=== PATIENT | female | born 1945 | race Caucasian/White ===

== ENCOUNTER 2017-12-11 06:56 | Day surgery (SDC) | payer MEDICARE ==
[~2017-12-11 06:56] MED LIST: Lactated Ringers 1,000 ML IV SCH
[2017-12-11] MEDS ORDERED: Propofol 200 MG/20 ML SDV ONE (08:21)
[2017-12-11] MEDS ORDERED: Midazolam 1 MG/ML 2 ML SDV ONE (08:21)
[2017-12-11] MEDS ORDERED: fentaNYL 100 MCG/2 ML SDV ONE (08:21)
[2017-12-11] MEDS ORDERED: Succinylcholine 200 MG/10 ML MDV ONE (08:22)
[2017-12-11] MEDS: Bupivacaine 0.5% 30 ML SDV ONE (08:44)
[2017-12-11] MEDS ORDERED: ceFAZolin 1 GM Vial ONE (08:54)
--- NOTE | 2017-12-11 14:41 | OR ---
PREOPERATIVE DIAGNOSIS: Right neck lymphadenopathy suspicious for a B-cell lymphoma. POSTOPERATIVE DIAGNOSIS: Right neck lymphadenopathy suspicious for a B-cell lymphoma. PROCEDURE PERFORMED: Right neck lymph node excision. INDICATION: The patient is a 72-year-old female with history of a right neck lymphadenopathy, who presents for excision at this time. PROCEDURE IN DETAIL: Procedure was done in the operating room. General anesthetic was administered. The right neck was prepped and draped in sterile manner. A #15 blade was used to make a transverse incision 2 cm below the mandible. Cautery was used to go through subcutaneous tissue down to the platysma, medially below the platysma the hard mass was located, it was carefully dissected free from the surrounding tissue and from the jugular vein with cautery and sent to pathology. The incision was closed in layers with 3-0 Vicryl interrupted suture and 4-0 Vicryl running subcuticular suture and Dermabond. The patient was brought to PACU postoperatively and will be sent to home later today. BKD: 12/11/2017 09:56:16 MODL: 12/11/2017 14:28:53 /[id number]
== END 2017-12-11 11:09 | disposition home or self-care (01) ==
LOC: VM.SDS 06:56
PROVIDERS: ATTEND Surgery
DX: C82.01 Follicular lymphoma grade I, lymph nodes of head, face, and neck (principal); E11.9 Type 2 diabetes mellitus without complications; I10 Essential (primary) hypertension; E78.5 Hyperlipidemia, unspecified; E66.01 Morbid (severe) obesity due to excess calories; Z79.82 Long term (current) use of aspirin; Z79.899 Other long term (current) drug therapy; Z68.36 Body mass index [BMI] 36.0-36.9, adult; F17.210 Nicotine dependence, cigarettes, uncomplicated
CPT/HCPCS: 00300; J0330; J0690; J2250; J2704; J3010; J7120

== ENCOUNTER 2018-03-06 12:58 | Emergency (ER) | payer MEDICARE, MEDICAID ==
[2018-03-06] MEDS ORDERED: Sodium Chloride 0.9% 1,000 ML IV ONE (13:11)
[2018-03-06] MEDS ORDERED: Ondansetron 4 MG/2 ML SDV IVPUSH ONE (13:11)
[2018-03-06] MEDS ORDERED: Sodium Chloride 0.9% 10 ML Syringe FLUSH PRN (13:11)
[2018-03-06 13:51] LABS: CHLORIDE,CL 107 mmol/L (98-107); SODIUM,NA 143 mmol/L (136-145)
--- NOTE | 2018-03-07 20:52 | EDM.PDOC ---
ED HPI GENERAL MEDICAL PROBLEM - General Chief Complaint: General Stated Complaint: DIZZY,NUMB LIPS,SICK TO STOMACH Time Seen by Provider: 03/06/18 13:09 Source of Information: Reports: Patient History Limitations: Reports: No Limitations - History of Present Illness INITIAL COMMENTS - FREE TEXT/NARRATIVE: Pt. presents to er with acute onset of vertigo. She is currently undergoing chemotherapy (oral) for lymphoma. Pt. states that the onset of the vertigo was very rapid. Denies any headache, extremity or speech issues. She denies any fever or chills. She states that she cant open her eyes or she becomes nauseated. Onset Date: 03/06/18 Location: Reports: Generalized - Related Data Allergies Allergy/AdvReac Type Severity Reaction Status Date / Time No Known Allergies Allergy Verified 03/06/18 14:29 Home Meds: Home Meds Aspirin 325 mg PO BEDTIME 12/06/17 [History] Calcium Carbonate/Vitamin D3 [Calcium 600 + Vit D 400 Softgl] 1 tab PO BID 12/06 [History] Clopidogrel [Plavix] 75 mg PO BEDTIME 12/06/17 [History] Enalapril [Vasotec] 5 mg PO DAILY 12/06/17 [History] Multivitamin with Minerals [Multivitamins with Minerals] 4 cap PO DAILY [History] Naproxen Sodium [Aleve] 220 mg PO DAILY PRN 12/06/17 [History] Simvastatin [Zocor] 40 mg PO BEDTIME 12/06/17 [History] Ruxolitinib Phosphate [Jakafi] 10 mg DAILY 03/06/18 [History] Past Medical History HEENT History: Reports: Macular Degeneration Cardiovascular History: Reports: High Cholesterol, Hypertension Respiratory History: Reports: None Gastrointestinal History: Reports: Other (See Below) Other Gastrointestinal History: + FIT Neurological History: Reports: CVA, Headaches, Chronic, Other (See Below) Other Neuro History: CVD Psychiatric History: Reports: None Endocrine/Metabolic History: Reports: Diabetes, Type II, Obesity/BMI 30+ Hematologic History: Reports: None Immunologic History: Reports: None Oncologic (Cancer) History: Reports: Lymphoma, Other (See Below) Other Oncologic History: 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 Dermatologic History: Reports: Other (See Below) Other Dermatologic History: right side neck mass - Past Surgical History Head Surgeries/Procedures: Reports: None HEENT Surgical History: Reports: Other (See Below) Other HEENT Surgeries/Procedures: INJECTIONS IN LEFT EYE Cardiovascular Surgical History: Reports: None Respiratory Surgical History: Reports: None Female Surgical History: Reports: Section Social & Family History - Tobacco Use Smoking Status *Q: Current Every Day Smoker Years of Tobacco use: 56 Packs/Tins Daily: 0.5 - Caffeine Use Caffeine Use: Reports: Coffee - Recreational Drug Use Recreational Drug Use: No ED ROS GENERAL - Review of Systems Review Of Systems: See Below Constitutional: Reports: No Symptoms HEENT: Reports: Vertigo Respiratory: Reports: No Symptoms Cardiovascular: Reports: No Symptoms Endocrine: Reports: No Symptoms GI/Abdominal: Reports: No Symptoms : Reports: No Symptoms Musculoskeletal: Reports: No Symptoms Skin: Reports: No Symptoms Neurological: Reports: No Symptoms Psychiatric: Reports: No Symptoms Hematologic/Lymphatic: Reports: No Symptoms Immunologic: Reports: No Symptoms ED EXAM, GENERAL - Physical Exam Exam: See Below Exam Limited By: No Limitations General Appearance: Alert, WD/WN, No Apparent Distress Eye Exam: Bilateral Eye: EOMI, Normal Fundi, Normal Inspection, PERRL Ears: Normal External Exam, Normal Canal, Hearing Grossly Normal, Normal TMs Ear Exam: Bilateral Ear: Auricle Normal, Canal Normal, TM normal Nose: Normal Inspection, Normal Mucosa, No Blood Throat/Mouth: Normal Inspection, Normal Lips, Normal Teeth, Normal Gums, Normal Oropharynx, Normal Voice, No Airway Compromise Head: Atraumatic, Normocephalic Neck: Normal Inspection, Supple, Non-Tender, Full Range of Motion Respiratory/Chest: No Respiratory Distress, Lungs Clear, Normal Breath Sounds, No Accessory Muscle Use, Chest Non-Tender Cardiovascular: Normal Peripheral Pulses, Regular Rate, Rhythm, No Edema, No Gallop, No JVD, No Murmur, No Rub Peripheral Pulses: 4+: Radial (L), Radial (R) GI/Abdominal: Normal Bowel Sounds, Soft, Non-Tender, No Organomegaly, No Distention, No Abnormal Bruit, No Mass (Female) Exam: Deferred Rectal (Female) Exam: Deferred Back Exam: Normal Inspection, Full Range of Motion, NT Extremities: Normal Inspection, Normal Range of Motion, Non-Tender, Normal Capillary Refill, No Pedal Edema Neurological: Alert, Oriented, CN II-XII Intact, Normal Cognition, Normal Gait, Normal Reflexes, No Motor/Sensory Deficits Psychiatric: Normal Affect, Normal Mood Skin Exam: Warm, Dry, Intact, Normal Color, No Rash Lymphatic: No Adenopathy (Mayi-Hallpike was positive) Course - Vital Signs Last Recorded V/S: Last Vital Signs Temp 36.6 C 03/06/18 13:05 Pulse 62 03/06/18 13:05 Resp 20 03/06/18 13:05 BP 156/57 H 03/06/18 13:05 Pulse Ox 96 03/06/18 13:05 - Orders/Labs/Meds Labs: Laboratory Tests 03/06/18 03/06/18 03/06/18 Range/Units 13:21 13:21 13:21 WBC 41.8 H* (4.0-10.0) x10^3/uL RBC 4.61 (4.00-5.50) x10^6/uL Hgb 13.3 (12.0-16.0) g/dL Hct 40.9 (33.0-47.0) % MCV 88.7 (78.0-93.0) fL MCH 28.9 (26.0-32.0) pg MCHC 32.5 (32.0-36.0) g/dL RDW (10.9-15.7) RDW Coeff of Audrey 19.0 H (10.0-15.0) % Plt Count 101 L (130-400) x10^3/uL Add Manual Diff Yes Neutrophils % (Manual) 41 L (50-80) % Band Neutrophils % 19 H (0-6) % Band Neuts % (Manual) % Lymphocytes % (Manual) 10 L (25-50) % Monocytes % (Manual) 6 (2-11) % Eosinophils % (Manual) 5 H (0-4) % Basophils % (Manual) 1 (0-1) % Metamyelocytes % 8 H (0) % Metamyelocytes % (Man) % Myelocytes % 10 H (0) % Myelocytes % (Man) % Blast Cells % (Manual) % Neutrophils # (Manual) (1.80-7.00) x10-3 ul Band Neutrophils # Man (0.00-0.70) x10-3 ul Lymphocytes # (Manual) (1.00-4.80) x10-3 ul Monocytes # (Manual) (0.00-0.80) x10-3 ul Eosinophils # (Manual) (0.00-0.45) x10-3 ul Basophils # (Manual) (0.00-0.20) x10-3 ul Nucleated RBCs/100 WBC % RBC/WBC/PLT Morphology Platelet Estimate Decreased L Giant Platelets Rare H Polychromasia 1+ slight H Anisocytosis 3+ marked H Spherocytes Rare Tear Drop Cells Rare Ovalocytes 2+ moderate H Smear Path Review Absolute Retic (0.0200-0.1000) Percent Retic (0.3-2.2) % PT 10.8 (9.6-11.4) SEC INR 1.0 L (2.0-3.5) Sodium 143 (136-145) mmol/L Potassium 3.9 (3.5-5.1) mmol/L Chloride 107 (98-107) mmol/L Carbon Dioxide 25 (21-32) mmol/L Anion Gap 14.9 (10-20) mmol/L BUN 18 (7-18) mg/dL Creatinine 0.8 (0.55-1.02) mg/dL Est Cr Clr Drug Dosing TNP Estimated GFR (MDRD) > 60 Glucose 118 H (74-106) mg/dL Serum Osmolality (275-295) mosm/kg Calcium 9.2 (8.5-10.1) mg/dL Corrected Calcium 9.36 (8.5-10.1) mg/dL Total Bilirubin 0.6 (0.2-1.0) mg/dL AST 31 (15-37) U/L ALT 25 (14-59) U/L Alkaline Phosphatase 95 (46-116) U/L Troponin I < 0.017 (<=0.056) ng/mL C-Reactive Protein 0.3 (<=0.9) mg/dL Total Protein 7.2 (6.4-8.2) g/dL Albumin 3.8 (3.4-5.0) g/dL Globulin 3.4 Albumin/Globulin Ratio 1.12 03/06/18 03/06/18 Range/Units 13:21 14:21 WBC 39.2 H* (4.0-10.0) x10^3/uL RBC 4.42 (4.00-5.50) x10^6/uL Hgb 12.4 (12.0-16.0) g/dL Hct 38.2 (33.0-47.0) % MCV 86 (78.0-93.0) fL MCH 28.1 (26.0-32.0) pg MCHC 32.5 (32.0-36.0) g/dL RDW 18.2 H (10.9-15.7) RDW Coeff of Audrey (10.0-15.0) % Plt Count 93 L (130-400) x10^3/uL Add Manual Diff Neutrophils % (Manual) 24 (50-80) % Band Neutrophils % (0-6) % Band Neuts % (Manual) 35 % Lymphocytes % (Manual) 6 (25-50) % Monocytes % (Manual) 2 (2-11) % Eosinophils % (Manual) 4 (0-4) % Basophils % (Manual) 6 (0-1) % Metamyelocytes % (0) % Metamyelocytes % (Man) 11.5 % Myelocytes % (0) % Myelocytes % (Man) 11.5 % Blast Cells % (Manual) 0.5 % Neutrophils # (Manual) 9.41 H (1.80-7.00) x10-3 ul Band Neutrophils # Man 13.72 H (0.00-0.70) x10-3 ul Lymphocytes # (Manual) 2.35 (1.00-4.80) x10-3 ul Monocytes # (Manual) 0.78 (0.00-0.80) x10-3 ul Eosinophils # (Manual) 1.57 H (0.00-0.45) x10-3 ul Basophils # (Manual) 2.35 H (0.00-0.20) x10-3 ul Nucleated RBCs/100 WBC 1.0 % RBC/WBC/PLT Morphology Abnormal Platelet Estimate Mod dec Giant Platelets Polychromasia 1+ Anisocytosis Spherocytes Tear Drop Cells 1+ Ovalocytes 2+ Smear Path Review Path rpt Absolute Retic 0.1886 H (0.0200-0.1000) Percent Retic 4.3 H (0.3-2.2) % PT (9.6-11.4) SEC INR (2.0-3.5) Sodium (136-145) mmol/L Potassium (3.5-5.1) mmol/L Chloride (98-107) mmol/L Carbon Dioxide (21-32) mmol/L Anion Gap (10-20) mmol/L BUN (7-18) mg/dL Creatinine (0.55-1.02) mg/dL Est Cr Clr Drug Dosing Estimated GFR (MDRD) Glucose (74-106) mg/dL Serum Osmolality 304 H (275-295) mosm/kg Calcium (8.5-10.1) mg/dL Corrected Calcium (8.5-10.1) mg/dL Total Bilirubin (0.2-1.0) mg/dL AST (15-37) U/L ALT (14-59) U/L Alkaline Phosphatase (46-116) U/L Troponin I (<=0.056) ng/mL C-Reactive Protein (<=0.9) mg/dL Total Protein (6.4-8.2) g/dL Albumin (3.4-5.0) g/dL Globulin Albumin/Globulin Ratio Meds: Medications Discontinued Medications Generic Name Dose Route Start Last Admin Trade Name Freq PRN Reason Stop Dose Admin Sodium Chloride 1,000 mls @ 1,000 mls/hr 03/06/18 13:11 03/06/18 13:37 Normal Saline IV 03/06/18 14:10 1,000 mls/hr .BOLUS ONE Administration Ondansetron HCl 4 mg 03/06/18 13:11 03/06/18 13:37 Zofran IVPUSH 03/06/18 13:12 4 mg ONETIME ONE Administration Sodium Chloride 10 ml 03/06/18 13:11 Saline Flush FLUSH ASDIRECTED PRN Keep Vein Open Departure - Departure Time of Disposition: 12:58 Disposition: Home, Self-Care 01 Condition: Good Clinical Impression: BPPV (benign paroxysmal positional vertigo) - Discharge Information Instructions: Labyrinthitis Referrals: Savana Nina, [Primary Care Provider] - Forms: ED Department Discharge Additional Instructions: Home to rest. Zofran 4mg every 8 hours for nausea If still experiencing vertigo, you can try either dimenhydrinate (dramamine) or meclizine. These are both over the counter. Contact physical therapy if you are still experiencing symptoms.
== END 2018-03-06 16:10 | disposition home or self-care (01) ==
LOC: VM.ED 12:58
DX: H81.10 Benign paroxysmal vertigo, unspecified ear (principal); C85.90 Non-Hodgkin lymphoma, unspecified, unspecified site; F17.210 Nicotine dependence, cigarettes, uncomplicated; E78.00 Pure hypercholesterolemia, unspecified; E11.9 Type 2 diabetes mellitus without complications; I10 Essential (primary) hypertension; Z79.899 Other long term (current) drug therapy
CPT/HCPCS: 36415; 70450; 80053; 83930; 84484; 85025; 85045; 85610; 86140; 93005; 96361; 96374; 99284; J2405; J7030; 85008

== ENCOUNTER 2019-09-05 16:27 | Emergency (ER) | payer MEDICARE, MEDICAID ==
[2019-09-05] MEDS ORDERED: Lidocaine 1% with EPINEPHrine 1:100,000 20 ML MDV INFILT ONE (17:15)
[2019-09-05 17:18] LABS: CHLORIDE,CL 107 mmol/L (98-107); SODIUM,NA 141 mmol/L (136-145)
--- NOTE | 2019-09-05 17:32 | CT ---
[id number] CT/CT Head WO IV EXAM: NONCONTRAST HEAD CT INDICATION: Fall with head trauma. COMPARISON: March 06, 2018. DISCUSSION: Left scalp hematoma and laceration. There is mild generalized atrophy. Mild multifocal white matter hypoattenuation is nonspecific, but generally ascribed to chronic small vessel ischemia. No mass effect or midline shift. No acute hemorrhage or extra-axial fluid collection. No acute territorial infarct is identified. Near complete opacification of the right sphenoid sinus. IMPRESSION: 1. No evidence of acute intracranial trauma. Bj Flores MD 09/05/19 [id number] Thank you for allowing us to participate in the care of your patient.
--- NOTE | 2019-09-05 18:09 | EDM.PDOC ---
ED HPI GENERAL MEDICAL PROBLEM - General Stated Complaint: TRAUMA Time Seen by Provider: 09/05/19 16:27 Source of Information: Reports: Patient, EMS History Limitations: Reports: No Limitations - History of Present Illness INITIAL COMMENTS - FREE TEXT/NARRATIVE: Pt. states that she misstepped and fell down one step and struck the L side of her head on the bottom of the handrail to the stairs. She states that she landed on her L side and injured her L upper arm/shoulder. She did not have any LOC. She is on plavix. The event was unwitnessed but there was someone in the next room that heard it and immediately responded. Pt. exhibited no seizure activity. Pt. states that she recalls the entire event. EMS was summoned. Pt. was bleeding heavily from laceration to L temporal area. Dressing was placed. Pt. was hemodynamically stable and alert during transport. Trauma code was called due to patient's comorbid medical conditions, use of plavix and age. Pt. denies any neck pain. No chest or abdominal pain. Pt. states that the discomfort is isolated to her head and L upper extremity. Onset: Today Location: Reports: Head, Upper Extremity, Left Quality: Reports: Ache Severity: Severe - Related Data Allergies Allergy/AdvReac Type Severity Reaction Status Date / Time No Known Allergies Allergy Verified 03/06/18 14:29 Home Meds: Home Meds Aspirin 325 mg PO BEDTIME 12/06/17 [History] Calcium Carbonate/Vitamin D3 [Calcium 600 + Vit D 400 Softgl] 1 tab PO BID 12/06 [History] Clopidogrel [Plavix] 75 mg PO BEDTIME 12/06/17 [History] Enalapril [Vasotec] 5 mg PO DAILY 12/06/17 [History] Multivitamin with Minerals [Multivitamins with Minerals] 4 cap PO DAILY [History] Naproxen Sodium [Aleve] 220 mg PO DAILY PRN 12/06/17 [History] Simvastatin [Zocor] 40 mg PO BEDTIME 12/06/17 [History] Ruxolitinib Phosphate [Jakafi] 10 mg DAILY 03/06/18 [History] Past Medical History HEENT History: Reports: Macular Degeneration Cardiovascular History: Reports: High Cholesterol, Hypertension Respiratory History: Reports: None Gastrointestinal History: Reports: Other (See Below) Other Gastrointestinal History: + FIT Neurological History: Reports: CVA, Headaches, Chronic, Other (See Below) Other Neuro History: CVD Psychiatric History: Reports: None Endocrine/Metabolic History: Reports: Diabetes, Type II, Obesity/BMI 30+ Hematologic History: Reports: None Immunologic History: Reports: None Oncologic (Cancer) History: Reports: Lymphoma, Other (See Below) Other Oncologic History: 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 Dermatologic History: Reports: Other (See Below) Other Dermatologic History: right side neck mass - Past Surgical History Head Surgeries/Procedures: Reports: None HEENT Surgical History: Reports: Other (See Below) Other HEENT Surgeries/Procedures: INJECTIONS IN LEFT EYE Cardiovascular Surgical History: Reports: None Respiratory Surgical History: Reports: None Female Surgical History: Reports: Section Social & Family History - Caffeine Use Caffeine Use: Reports: Coffee ED ROS GENERAL - Review of Systems Review Of Systems: See Below Constitutional: Reports: No Symptoms HEENT: Reports: Other (See above). Denies: Dental Pain, Ear Pain, Hearing Loss , Nosebleed, Nose Pain, Throat Pain, Vertigo, Vision Change Respiratory: Reports: No Symptoms Cardiovascular: Reports: No Symptoms Endocrine: Reports: No Symptoms GI/Abdominal: Reports: No Symptoms : Reports: No Symptoms Musculoskeletal: Reports: Shoulder Pain, Arm Pain (See HPI) Skin: Reports: No Symptoms Neurological: Reports: Headache. Denies: Confusion, Dizziness, Numbness, Paresthesia, Pre-Existing Deficit, Seizure, Syncope, Tremors, Trouble Speaking, Difficulty Walking, Weakness, Change in Speech Psychiatric: Reports: No Symptoms Hematologic/Lymphatic: Reports: No Symptoms Immunologic: Reports: No Symptoms ED EXAM, GENERAL - Physical Exam Exam: See Below Exam Limited By: No Limitations General Appearance: Alert, WD/WN Eye Exam: Bilateral Eye: EOMI, Normal Fundi, Normal Inspection, PERRL Ears: Normal External Exam, Normal Canal, Normal TMs Ear Exam: Bilateral Ear: Auricle Normal, Canal Normal Nose: Normal Inspection, Normal Mucosa, No Blood Throat/Mouth: Normal Inspection, Normal Lips, Normal Teeth, Normal Gums, Normal Oropharynx, Normal Voice, No Airway Compromise Head: Other (3 cm laceration to L temporal area, 6 cm. in diameter abrasion to occiput.) Neck: Normal Inspection, Supple, Non-Tender, Full Range of Motion Respiratory/Chest: No Respiratory Distress, Lungs Clear, Normal Breath Sounds, No Accessory Muscle Use, Chest Non-Tender Cardiovascular: Normal Peripheral Pulses, Regular Rate, Rhythm, No Edema, No Gallop, No JVD, No Murmur, No Rub GI/Abdominal: Normal Bowel Sounds, Soft, Non-Tender, No Organomegaly, No Distention, No Abnormal Bruit, No Mass, Pelvis Stable (Female) Exam: Deferred Rectal (Female) Exam: Deferred Back Exam: Normal Inspection, Full Range of Motion Extremities: Normal Inspection, Normal Range of Motion, Non-Tender, No Pedal Edema, Normal Capillary Refill Neurological: Alert, Oriented, CN II-XII Intact, Normal Cognition, Normal Reflexes, No Motor/Sensory Deficits Psychiatric: Normal Affect, Normal Mood Skin Exam: Warm, Dry, Intact, Normal Color, No Rash Lymphatic: No Adenopathy ED GENERAL MEDICAL PROCEDURES - Laceration/Wound Repair Left Anterior Lateral Head Lac/wound length in cm: 3 Appearance: Subcutaneous, Mildly Contaminated Anesthetic Type: Local Local Anesthesia - Lidocaine (Xylocaine): 0.5% with EPI Local Anesthetic Volume: Other (7) Skin Prep: Chlorhexidine (Hibiciens), Saline Exploration/Debridement/Repair: Wound Explored, Explored to Base Closed with: Steri-Strips # of Sutures: 5 Course - Orders/Labs/Meds Labs: Laboratory Tests 09/05/19 09/05/19 09/05/19 Range/Units 16:50 16:50 16:50 WBC 62.2 H* (4.0-10.0) x10^3/uL RBC 4.04 (4.00-5.50) x10^6/uL Hgb 11.2 L D (12.0-16.0) g/dL Hct 35.5 (33.0-47.0) % MCV 87.9 (78.0-93.0) fL MCH 27.7 (26.0-32.0) pg MCHC 31.5 L (32.0-36.0) g/dL RDW Coeff of Audrey 18.7 H (10.0-15.0) % Plt Count 74 L (130-400) x10^3/uL Add Manual Diff Yes Neutrophils % (Manual) 44 L (50-80) % Band Neutrophils % 20 H (0-6) % Lymphocytes % (Manual) 18 L (25-50) % Monocytes % (Manual) 5 (2-11) % Metamyelocytes % 6 H (0) % Myelocytes % 7 H (0) % Platelet Estimate Decreased L Giant Platelets Few H Anisocytosis 3+ marked H Spherocytes 1+ slight H PT 11.3 (10.0-12.8) SEC INR 1.0 L (2.0-3.5) Sodium 141 (136-145) mmol/L Potassium 4.0 (3.5-5.1) mmol/L Chloride 107 (98-107) mmol/L Carbon Dioxide 25 (21-32) mmol/L Anion Gap 13.0 (10-20) mmol/L BUN 15 (7-18) mg/dL Creatinine 0.9 (0.55-1.02) mg/dL Est Cr Clr Drug Dosing TNP Estimated GFR (MDRD) > 60 Glucose 173 H (74-106) mg/dL Calcium 8.5 (8.5-10.1) mg/dL Corrected Calcium 9.06 (8.5-10.1) mg/dL Total Bilirubin 0.4 (0.2-1.0) mg/dL AST 35 (15-37) U/L ALT 20 (14-59) U/L Alkaline Phosphatase 95 (46-116) U/L Total Protein 6.7 (6.4-8.2) g/dL Albumin 3.3 L (3.4-5.0) g/dL Globulin 3.4 Albumin/Globulin Ratio 0.97 Meds: Medications Discontinued Medications Generic Name Dose Route Start Last Admin Trade Name Serena PRN Reason Stop Dose Admin Hydrocodone Bitart/Acetaminophen 2 packet 09/05/19 18:50 09/05/19 19:30 Take Home: Acetaminophen/Hydrocodone 325-10mg PO 09/05/19 18:51 2 packet ONETIME ONE Administration Fentanyl 50 mcg 09/05/19 18:31 Sublimaze IVPUSH 09/05/19 18:32 ONETIME ONE Lidocaine/Epinephrine 20 ml 09/05/19 17:15 Xylocaine 1% With Epinephrine 1:100,000 INFILT 09/05/19 17:16 ONETIME ONE Ondansetron HCl 4 mg 09/05/19 18:54 Zofran IVPUSH 11/28/19 18:55 ONETIME ONE Ondansetron HCl 2 packet 09/05/19 18:55 09/05/19 19:30 Take Home: Ondansetron Odt 4 Mg, 2 Tab Pack PO 09/05/19 18:56 2 packet ONETIME ONE Administration - Radiology Interpretation Free Text/Narrative:: CT brain without contrast obtained and was negative. Mildly comminuted L proximal humerus fx. Departure - Departure Time of Disposition: 06:22 Disposition: Home, Self-Care 01 Clinical Impression: Humerus fracture - Discharge Information Instructions: Acetaminophen; Hydrocodone tablets or capsules, Humerus Fracture Treated With Immobilization, [id number] Referrals: Savana Nina, DO [Primary Care Provider] - Additional Instructions: I spoke with Dr. De La Fuente. He plans on managing the fracture conservatively. Follow-up with [facility] in 1 week. Call [phone] or have your PCP put in a referral. Keep shoulder immobilizer on at all times. [place] 10/325mg 1 every 4-6 hours as needed for pain. Zofran 4mg ODT 1 tab every 6 hours for nausea. - Assessment/Plan Plan: I spoke with Dr. De La Fuente. He plans on managing the fracture conservatively. Follow-up with [facility] in 1 week. Call [phone] or have your PCP put in a referral. Keep shoulder immobilizer on at all times. [place] 10/325mg 1 every 4-6 hours as needed for pain. Zofran 4mg ODT 1 tab every 6 hours for nausea.
--- NOTE | 2019-09-05 18:27 | CR ---
[id number] RAD/RAD Shoulder Left 2V Min; [id number] RAD/RAD Humerus Left 2V EXAM: LEFT HUMERUS 2 VIEWS, LEFT SHOULDER 2 VIEWS INDICATION: Fall with left shoulder and upper arm pain. COMPARISON: None. DISCUSSION: Mildly comminuted and minimally displaced proximal humerus fracture with fracture lines extending across the surgical neck and greater tuberosity. Moderate acromioclavicular and glenohumeral osteoarthritis. Osteopenia. Chronic appearing left rib fractures. No dislocation. IMPRESSION: 1. Acute mildly comminuted and displaced proximal humerus fracture. Bj Flores MD 09/05/19 [phone] Thank you for allowing us to participate in the care of your patient.
[2019-09-05] MEDS ORDERED: fentaNYL 100 MCG/2 ML SDV IVPUSH ONE (18:31)
[2019-09-05] MEDS ORDERED: Take Home: Acetaminophen/HYDROcodone 325-10 MG, 5 Tab Pack PO ONE (18:50)
[2019-09-05] MEDS ORDERED: Ondansetron 4 MG/2 ML SDV IVPUSH ONE (18:54)
[2019-09-05] MEDS ORDERED: Take Home: Ondansetron 4 MG Tab.DIS, 2 Tab Pack PO ONE (18:55)
== END 2019-09-05 19:30 | disposition home or self-care (01) ==
LOC: VM.ED 16:27
DX: S42.202A Unspecified fracture of upper end of left humerus, initial encounter for closed fracture (principal); S01.01XA Laceration without foreign body of scalp, initial encounter; I10 Essential (primary) hypertension; E78.00 Pure hypercholesterolemia, unspecified; E11.9 Type 2 diabetes mellitus without complications; E66.9 Obesity, unspecified; Z86.73 Personal history of transient ischemic attack (TIA), and cerebral infarction without residual deficits; Z79.899 Other long term (current) drug therapy; W10.9XXA Fall (on) (from) unspecified stairs and steps, initial encounter
CPT/HCPCS: 12002; 36415; 70450; 73030-LT; 73060-LT; 80053; 85025; 85610; 99284-25; 99284-GF; A9270-GY; J2405; J3010

== ENCOUNTER 2021-03-15 09:04 | Emergency (ER) | payer MEDICARE ==
[2021-03-15] MEDS ORDERED: Ondansetron 4 MG/2 ML SDV IVPUSH ONE (09:21)
[2021-03-15] MEDS ORDERED: Morphine 4 MG/ML Syringe IVPUSH ONE ×2 (09:21→10:36)
[2021-03-15] MEDS ORDERED: Sodium Chloride 0.9% 1,000 ML IV ONE (09:25)
[2021-03-15 10:05] LABS: PTT,PARTIAL THROMBOPLSTIN TIME 25.6 SEC (25.6-32.8)
[2021-03-15 10:19] LABS: ANION GAP 15.1 mmol/L (5-15); CHLORIDE,CL 107 mmol/L (98-107); SODIUM,NA 143 mmol/L (136-145)
--- NOTE | 2021-03-15 10:25 | EDM.PDOC ---
ED HPI GENERAL MEDICAL PROBLEM - General Stated Complaint: CHEST PAIN,SHOULDER AND ABDOMINAL PAIN Time Seen by Provider: 03/15/21 09:04 Source of Information: Reports: Patient, EMS History Limitations: Reports: No Limitations - History of Present Illness INITIAL COMMENTS - FREE TEXT/NARRATIVE: Pt. presents to ER with complaints of upper abdominal, chest and back pain. She states that the symptoms started on Monday, but they got worse last night. She complains of watery stools and nausea but no vomiting. She states that she was recently treated for an ear infection with amoxicillin. Denies any recent inpatient hospitalizations. She states that the discomfort is worse when she moves. Pt. denies any melena, hematochezia, or hematemesis. Denies any fever or chills. Pt. states that the discomfort is located primarily in the L upper quadrant. She states that it is worse with movement. 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 She has a history of chronic lymphocytosis, anemia, and thrombocytopenia. She is scheduled to see Dr. Kahn on . Onset Date: 03/12/21 Location: Reports: Chest, Abdomen Quality: Reports: Ache, Burning, Pressure, Sharp, Stabbing, Throbbing Severity: Severe Associated Symptoms: Reports: Nausea/Vomiting - Related Data Allergies Allergy/AdvReac Type Severity Reaction Status Date / Time No Known Allergies Allergy Verified 03/06/18 14:29 Home Meds: Home Meds Aspirin 325 mg PO BEDTIME 12/06/17 [History] Calcium Carbonate/Vitamin D3 [Calcium 600 + Vit D 400 Softgl] 1 tab PO BID 12/06/17 [History] Clopidogrel [Plavix] 75 mg PO BEDTIME 12/06/17 [History] Enalapril [Vasotec] 5 mg PO DAILY 12/06/17 [History] Multivitamin with Minerals [Multivitamins with Minerals] 4 cap PO DAILY 12/06/17 [History] Naproxen Sodium [Aleve] 220 mg PO DAILY PRN 12/06/17 [History] Simvastatin [Zocor] 40 mg PO BEDTIME 12/06/17 [History] Ruxolitinib Phosphate [Jakafi] 10 mg DAILY 03/06/18 [History] Past Medical History HEENT History: Reports: Macular Degeneration Cardiovascular History: Reports: High Cholesterol, Hypertension Respiratory History: Reports: None Gastrointestinal History: Reports: Other (See Below) Other Gastrointestinal History: + FIT Neurological History: Reports: CVA, Headaches, Chronic, Other (See Below) Other Neuro History: CVD Psychiatric History: Reports: None Endocrine/Metabolic History: Reports: Diabetes, Type II, Obesity/BMI 30+ Hematologic History: Reports: None Immunologic History: Reports: None Oncologic (Cancer) History: Reports: Lymphoma, Other (See Below) Other Oncologic History: 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 Dermatologic History: Reports: Other (See Below) Other Dermatologic History: right side neck mass - Past Surgical History Head Surgeries/Procedures: Reports: None HEENT Surgical History: Reports: Other (See Below) Other HEENT Surgeries/Procedures: INJECTIONS IN LEFT EYE Cardiovascular Surgical History: Reports: None Respiratory Surgical History: Reports: None Female Surgical History: Reports: Section Social & Family History - Caffeine Use Caffeine Use: Reports: Coffee ED ROS GENERAL - Review of Systems Review Of Systems: See Below HEENT: Reports: No Symptoms Respiratory: Reports: No Symptoms Cardiovascular: Reports: Chest Pain Endocrine: Reports: No Symptoms GI/Abdominal: Reports: Abdominal Pain, Anorexia, Diarrhea, Nausea. Denies: Black Stool, Bloody Stool, Hematemesis, Hematochezia, Melena, Vomiting : Reports: No Symptoms Musculoskeletal: Reports: No Symptoms Skin: Reports: No Symptoms Neurological: Reports: No Symptoms Psychiatric: Reports: No Symptoms Hematologic/Lymphatic: Reports: No Symptoms Immunologic: Reports: No Symptoms ED EXAM, GENERAL - Physical Exam Exam: See Below Exam Limited By: No Limitations General Appearance: Alert, WD/WN, Moderate Distress Head: Atraumatic, Normocephalic Neck: Normal Inspection, Supple, Non-Tender, Full Range of Motion Respiratory/Chest: No Respiratory Distress, Lungs Clear, Normal Breath Sounds, No Accessory Muscle Use, Chest Non-Tender Cardiovascular: Normal Peripheral Pulses, Regular Rate, Rhythm, No Edema, No JVD, No Murmur Peripheral Pulses: 4+: Radial (L) GI/Abdominal: Soft, Tender, Splenomegaly (Female) Exam: Deferred Rectal (Female) Exam: Deferred Extremities: Normal Inspection, Normal Range of Motion, Non-Tender, No Pedal Edema, Normal Capillary Refill Neurological: Alert, Oriented, CN II-XII Intact, Normal Cognition, Normal Gait, No Motor/Sensory Deficits Psychiatric: Anxious, Flat Affect Course - Orders/Labs/Meds Orders: Active Orders 24 hr Category Date Time Status Cardiac Monitoring [RC] CONTINUOUS Care 03/15/21 09:19 Active EKG Documentation Completion [RC] STAT Care 03/15/21 09:20 Active CLOSTRIDIUM DIFFICILE TOX RFLX [MREF] Stat Lab 03/15/21 12:31 Ordered Isolation [COMM] Stat Oth 03/15/21 12:32 Ordered Labs: Laboratory Tests 03/15/21 03/15/21 03/15/21 Range/Units 09:43 09:43 09:43 WBC 46.4 H* (4.0-10.0) x10^3/uL RBC 3.17 L (4.00-5.50) x10^6/uL Hgb 8.8 L D (12.0-16.0) g/dL Hct 28.5 L (33.0-47.0) % MCV 89.9 (78.0-93.0) fL MCH 27.8 (26.0-32.0) pg MCHC 30.9 L (32.0-36.0) g/dL RDW Coeff of Audrey 19.0 H (10.0-15.0) % Plt Count 56 L (130-400) x10^3/uL Add Manual Diff Yes Neutrophils % (Manual) 25 L (50-80) % Band Neutrophils % 36 H (0-6) % Lymphocytes % (Manual) 11 L (25-50) % Monocytes % (Manual) 6 (2-11) % Eosinophils % (Manual) 1 (0-4) % Metamyelocytes % 9 H (0) % Myelocytes % 12 H (0) % Nucleated RBCs 2 (0-5) /100WBC Platelet Estimate Decreased L Anisocytosis 2+ moderate H Spherocytes 1+ slight H PT 12.0 (9.9-12.5) SEC INR 1.1 L (2.0-3.5) APTT 25.6 (25.6-32.8) SEC Sodium 143 (136-145) mmol/L Potassium 4.1 (3.5-5.1) mmol/L Chloride 107 (98-107) mmol/L Carbon Dioxide 25 (21-32) mmol/L Anion Gap 15.1 H (5-15) mmol/L BUN 12 (7-18) mg/dL Creatinine 1.0 (0.55-1.02) mg/dL Est Cr Clr Drug Dosing TNP Estimated GFR (MDRD) 54 Glucose 111 H (70-99) mg/dL Calcium 8.5 (8.5-10.1) mg/dL Corrected Calcium 9.1 (8.5-10.1) mg/dL Magnesium 1.8 (1.8-2.4) mg/dL Total Bilirubin 0.6 (0.2-1.0) mg/dL AST 52 H (15-37) U/L ALT 27 (14-59) U/L Alkaline Phosphatase 100 (46-116) U/L Troponin I High Sens 9 (<=51) ng/L C-Reactive Protein 1.4 H (<=0.9) mg/dL Total Protein 6.8 (6.4-8.2) g/dL Albumin 3.3 L (3.4-5.0) g/dL Globulin 3.5 Albumin/Globulin Ratio 0.94 Amylase 26 (25-115) U/L Lipase 43 L (73-393) U/L Meds: Medications Discontinued Medications Generic Name Dose Route Start Last Admin Trade Name Freq PRN Reason Stop Dose Admin Iopamidol 100 ml 03/15/21 11:09 03/15/21 11:44 Iopamidol 612 Mg/Ml 100 Ml Bottle IVPUSH 03/15/21 11:10 100 ml ONETIME ONE Administration Morphine Sulfate 4 mg 03/15/21 09:21 Morphine 4 Mg/Ml Syringe IVPUSH 03/15/21 09:22 ONETIME ONE Morphine Sulfate 4 mg 03/15/21 10:36 Morphine 4 Mg/Ml Syringe IVPUSH 03/15/21 10:37 ONETIME ONE Ondansetron HCl 4 mg 03/15/21 09:21 Ondansetron 4 Mg/2 Ml Sdv IVPUSH 03/15/21 09:22 ONETIME ONE Departure - Departure Time of Disposition: 12:45 Disposition: Home, Self-Care 01 Clinical Impression: Splenomegaly, Lymphoma, Diarrhea - Discharge Information Instructions: Diarrhea, Adult Referrals: Savana Nina, [Primary Care Provider] - Additional Instructions: Collect stool, bring to lab for analysis. Please refrigerate immediately after obtaining sample. Scipio 10/325mg 1 every 4-6 hours as needed for pain. Zofran ODT 4mg 1 every 6 hours as needed for nausea/vomiting. I would take this before you take the pain medication. Follow-up with Oncology this week as planned. - Problem List Review Problem List Initiated/Reviewed/Updated: Yes - My Orders Last 24 Hours: My Active Orders 03/15/21 09:19 Cardiac Monitoring [RC] CONTINUOUS 03/15/21 09:20 EKG Documentation Completion [RC] STAT 03/15/21 12:31 CLOSTRIDIUM DIFFICILE TOX RFLX [MREF] Stat 03/15/21 12:32 Isolation [COMM] Stat - Assessment/Plan Last 24 Hours: My Active Orders 03/15/21 09:19 Cardiac Monitoring [RC] CONTINUOUS 03/15/21 09:20 EKG Documentation Completion [RC] STAT 03/15/21 12:31 CLOSTRIDIUM DIFFICILE TOX RFLX [MREF] Stat 03/15/21 12:32 Isolation [COMM] Stat Plan: Discussed case with Dr. Parry, oncologist at [facility]. She advised outpatient follow-up this week. Pt. was started on Scipio 10/325mg 1 every 4-6 hours for pain. Zofran ODT 4mg every 6 hours as needed for nausea/vomiting. Stool for c-diff was ordered, given her recent use of antibiotics. She will collect a sample and bring it to lab for analysis. Return to ER if unable to control pain with oral pain medication, or if unable to hold down fluids.
[2021-03-15] MEDS: Iopamidol 612 MG/ML 100 ML Bottle IVPUSH ONE (11:44)
--- NOTE | 2021-03-15 12:13 | CT ---
[id number] CT/CT Chest Abdomen Pelvis W IV Exam: CT Chest Abdomen Pelvis W IV Clinical Data: LYMPHOMA SPLENOMEGALY COMPARISON: NO PREVIOUS SIMILAR EXAM IS AVAILABLE FINDINGS: Significant splenomegaly is seen There are gallstones The liver and spleen show no focal abnormalities The aorta, adrenals, kidneys, and pancreas are unremarkable There is no lung infiltrate or lung mass There is no mediastinal mass Minimal nonspecific mediastinal adenopathy is seen. There is left common iliac ectasia measuring 2.3 cm in diameter There are diffuse atheromatous calcifications The pelvis shows no mass or adenopathy There is uncomplicated diverticular disease There are old pubic rami fractures IMPRESSION: SIGNIFICANT SPLENOMEGALY NO OTHER ACTIVE DISEASE Live Buchanan MD 03/15/21 [id number] Thank you for allowing us to participate in the care of your patient.
== END 2021-03-15 14:00 | disposition home or self-care (01) ==
LOC: VM.ED 09:04
DX: R19.7 Diarrhea, unspecified (principal); R16.1 Splenomegaly, not elsewhere classified; C85.90 Non-Hodgkin lymphoma, unspecified, unspecified site; E78.00 Pure hypercholesterolemia, unspecified; I10 Essential (primary) hypertension; E11.9 Type 2 diabetes mellitus without complications; E66.9 Obesity, unspecified; Z79.82 Long term (current) use of aspirin; Z79.02 Long term (current) use of antithrombotics/antiplatelets; Z79.899 Other long term (current) drug therapy; Z86.73 Personal history of transient ischemic attack (TIA), and cerebral infarction without residual deficits
CPT/HCPCS: 36415; 71260; 74177; 80053; 82150; 83690; 83735; 84484; 85025; 85610; 85730; 86140; 96374; 96375; 96376; 99284; 99285-25; J2270; J2405; J7030; Q9967

== ENCOUNTER 2021-03-17 10:49 | Inpatient (IN) | payer MEDICARE ==
[2021-03-17] MEDS ORDERED: Sodium Chloride 0.9% 10 ML Syringe FLUSH PRN (10:53)
[2021-03-17] MEDS ORDERED: HYDROmorphone 0.5 MG/0.5 ML Syringe IV ONE (10:56)
[2021-03-17] MEDS ORDERED: Lactated Ringers 1,000 ML IV SCH (11:00)
[2021-03-17] MEDS ORDERED: Ondansetron 4 MG/2 ML SDV IV ONE (11:18)
[2021-03-17] MEDS ORDERED: diphenhydrAMINE 50 MG/ML SDV IVPUSH ONE (11:41)
[2021-03-17 11:51] LABS: ANION GAP 17.2 mmol/L (5-15); CHLORIDE,CL 100 mmol/L (98-107); SODIUM,NA 137 mmol/L (136-145)
[2021-03-17] MEDS ORDERED: HYDROmorphone 1 MG/ML Syringe IVPUSH PRN (12:13)
[2021-03-17] MEDS ORDERED: Ondansetron 4 MG/2 ML SDV IVPUSH PRN (12:13)
[2021-03-17] MEDS ORDERED: Sodium Chloride 0.9% 1,000 ML IV SCH (12:15)
--- NOTE | 2021-03-17 12:24 | EDM.PDOC ---
ED HPI GENERAL MEDICAL PROBLEM - General Stated Complaint: N/V/D Time Seen by Provider: 03/17/21 10:50 Source of Information: Reports: Patient History Limitations: Reports: No Limitations - History of Present Illness INITIAL COMMENTS - FREE TEXT/NARRATIVE: Patient comes emergency department today from home by ambulance with concerns of nausea vomiting diarrhea abdominal pain weakness and poor appetite. This patient has a past medical history hypertension CVD, type 2 diabetes, dyslipidemia, primary myelofibrosis, grade 1 follicular lymphoma, thrombocytopenia, diverticulitis. She has been followed by heme-onc in [place] for her myelo-fibrosis. She was seen in the emergency department on Monday for abdominal pain nausea vomiting and diarrhea. She has been at home the last couple of days primary laying in bed. She has no strength. She has not been eating or drinking. She has increasing abdominal pain. She has nausea without vomiting. She has pretty regular diarrhea has been going on the past couple of weeks. She has had a decrease in her Jakafi recently. She denies any fever or chills. She does have pain in her chest with a deep breath primarily in the left lower quadrant. She does not have any pain at rest. She has no shortness of breath cough or congestion. She does complain of generalized weakness lightheadedness upon standing. No syncope or palpitations. She does complain of abdominal pain primarily in the left upper quadrant and she has a rather well-known massive splenomegaly. No hematuria dysuria or urinary frequency. No black or tarry stools. - Related Data Allergies Allergy/AdvReac Type Severity Reaction Status Date / Time No Known Allergies Allergy Verified 03/17/21 11:48 Home Meds: Home Meds Clopidogrel [Plavix] 75 mg PO BEDTIME 12/06/17 [History] Enalapril [Vasotec] 5 mg PO DAILY 12/06/17 [History] Simvastatin [Zocor] 40 mg PO BEDTIME 12/06/17 [History] Aspirin [Aspirin EC] 81 mg PO DAILY 03/17/21 [History] L.acidoph,Paracasei, B.lactis [Probiotic] 1 cap PO BID 03/17/21 [History] Ruxolitinib Phosphate [Jakafi] 5 mg PO BID 03/17/21 [History] Tolterodine Tartrate [Tolterodine Tartrate ER] 4 mg PO DAILY 03/17/21 [History] Trospium [Sanctura] 20 mg PO BID 03/17/21 [History] allopurinoL [Zyloprim] 100 mg PO DAILY 03/17/21 [History] Past Medical History HEENT History: Reports: Cataract, Macular Degeneration, Other (See Below) Other HEENT History: presbyopia. 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 Dermatologic History: Reports: Other (See Below) Other Dermatologic History: right side neck mass - Past Surgical History Head Surgeries/Procedures: Reports: None HEENT Surgical History: Reports: Other (See Below) Other HEENT Surgeries/Procedures: INJECTIONS IN LEFT EYE Cardiovascular Surgical History: Reports: None Respiratory Surgical History: Reports: None Female Surgical History: Reports: Section Social & Family History - Family History Family Medical History: No Pertinent Family History - Caffeine Use Caffeine Use: Reports: Coffee ED ROS GENERAL - Review of Systems Review Of Systems: Comprehensive ROS is negative, except as noted in HPI. ED EXAM, GENERAL - Physical Exam Exam: See Below Exam Limited By: No Limitations General Appearance: Alert, WD/WN, No Apparent Distress Eye Exam: Bilateral Eye: PERRL Ears: Normal External Exam Nose: Normal Inspection Throat/Mouth: No Airway Compromise. No: Normal Inspection (Her mouth is very dry. Her lips are dried cracked.) Head: Atraumatic, Normocephalic Neck: Normal Inspection, Supple, Non-Tender Respiratory/Chest: No Respiratory Distress, Lungs Clear, Normal Breath Sounds, No Accessory Muscle Use, Chest Non-Tender Cardiovascular: Normal Peripheral Pulses, Regular Rate, Rhythm Peripheral Pulses: 2+: Radial (L), Radial (R), Posterior Tibial (L), Posterior Tibial (R), Dorsalis Pedis (L), Dorsalis Pedis (R) GI/Abdominal: Normal Bowel Sounds, No Distention, Tender (Left upper quadrant), Splenomegaly (Rather impressively large left upper quadrant what I would assume is splenomegaly which is tender.). No: Guarding, Rigid, Rebound, Hernia, Hepatomegaly (Female) Exam: Deferred Rectal (Female) Exam: Deferred Back Exam: Normal Inspection, Full Range of Motion Extremities: Pedal Edema Neurological: Alert, Oriented, CN II-XII Intact, No Motor/Sensory Deficits Psychiatric: Flat Affect Skin Exam: Warm, Dry, Intact, Normal Color, No Rash Course - Orders/Labs/Meds Orders: Active Orders 24 hr Category Date Time Status EKG Documentation Completion [RC] STAT Care 03/17/21 10:54 Active Chest 1V Frontal [CR] Stat Exams 03/17/21 10:54 Taken UA RFX COSME AND CULT IF INDIC [URIN] Stat Lab 03/17/21 10:53 Ordered Lactated Ringers [Ringers, Lactated] 1,000 ml Med 03/17/21 11:00 Active IV ASDIRECTED Sodium Chloride 0.9% [Saline Flush] Med 03/17/21 10:53 Active 10 ml FLUSH ASDIRECTED PRN Peripheral IV Insertion Adult [OM.PC] Stat Oth 03/17/21 10:53 Ordered Medication Orders Allopurinol (Allopurinol 100 Mg Tab) 100 mg PO DAILY LAINA Aspirin (Aspirin 81 Mg Tab.Ec) 81 mg PO DAILY LAINA Clopidogrel Bisulfate (Clopidogrel 75 Mg Tab) 75 mg PO BEDTIME LAINA Enalapril Maleate (Enalapril 5 Mg Tab) 5 mg PO DAILY LAINA Hydromorphone HCl (Hydromorphone 1 Mg/Ml Syringe) 1 mg IVPUSH Q4H LAINA Hydromorphone HCl (Hydromorphone 1 Mg/Ml Syringe) 1 mg IVPUSH Q1H PRN PRN Reason: Pain Lactated Ringer's (Ringers, Lactated) 1,000 mls @ 250 mls/hr IV ASDIRECTED [facility] Last Admin: 03/17/21 11:15 Dose: 250 mls/hr Documented by: JAVIER Sodium Chloride (Normal Saline) 1,000 mls @ 100 mls/hr IV ASDIRECTED [facility] Lactobacillus Rhamnosus (Lactobacillus Rhamnosus Gg (Probiotic) Cap) 1 cap PO BID LAINA Non-Formulary Medication (Ruxolitinib Phosphate [Jakafi]) 5 mg PO BID LAINA Non-Formulary Medication (Tolterodine Tartrate [Tolterodine Tartrate Er]) 4 mg PO DAILY LAINA Ondansetron HCl (Ondansetron 4 Mg/2 Ml Sdv) 4 mg IVPUSH Q8H PRN PRN Reason: Nausea Simvastatin (Simvastatin 40 Mg Tab) 40 mg PO BEDTIME LAINA Sodium Chloride (Sodium Chloride 0.9% 10 Ml Syringe) 10 ml FLUSH ASDIRECTED PRN PRN Reason: Keep Vein Open Trospium (Trospium 20 Mg Tab) 20 mg PO BID LAINA Labs: Laboratory Tests 03/17/21 03/17/21 03/17/21 Range/Units 11:05 11:05 11:05 WBC 69.5 H* (4.0-10.0) x10^3/uL RBC 3.33 L (4.00-5.50) x10^6/uL Hgb 9.3 L (12.0-16.0) g/dL Hct 29.4 L (33.0-47.0) % MCV 88.3 (78.0-93.0) fL MCH 27.9 (26.0-32.0) pg MCHC 31.6 L (32.0-36.0) g/dL RDW Coeff of Audrey 19.1 H (10.0-15.0) % Plt Count 72 L (130-400) x10^3/uL Add Manual Diff Yes Neutrophils % (Manual) 51 (50-80) % Band Neutrophils % 19 H (0-6) % Lymphocytes % (Manual) 4 L (25-50) % Monocytes % (Manual) 2 (2-11) % Eosinophils % (Manual) 5 H (0-4) % Metamyelocytes % 12 H (0) % Blast Cells % 7 H (0) % Nucleated RBCs 7 H (0-5) /100WBC Platelet Estimate Marked dec L Hypochromasia 1+ slight H Anisocytosis 2+ moderate H Sodium 137 (136-145) mmol/L Potassium 4.2 (3.5-5.1) mmol/L Chloride 100 (98-107) mmol/L Carbon Dioxide 24 (21-32) mmol/L Anion Gap 17.2 H (5-15) mmol/L BUN 14 (7-18) mg/dL Creatinine 1.1 H (0.55-1.02) mg/dL Est Cr Clr Drug Dosing TNP Estimated GFR (MDRD) 48 Glucose 96 (70-99) mg/dL Lactic Acid 0.9 (0.4-2.0) mmol/L Uric Acid (2.6-6.0) mg/dL Calcium 8.3 L (8.5-10.1) mg/dL Corrected Calcium 9.0 (8.5-10.1) mg/dL Magnesium 1.8 (1.8-2.4) mg/dL Total Bilirubin 0.7 (0.2-1.0) mg/dL AST 55 H (15-37) U/L ALT 19 (14-59) U/L Alkaline Phosphatase 90 (46-116) U/L Lactate Dehydrogenase (81-234) U/L Troponin I High Sens 25 (<=51) ng/L C-Reactive Protein 12.8 H (<=0.9) mg/dL Total Protein 6.7 (6.4-8.2) g/dL Albumin 3.1 L (3.4-5.0) g/dL Globulin 3.6 Albumin/Globulin Ratio 0.86 Lipase 21 L (73-393) U/L SARS CoV-2 RNA Rapid TOR (NEGATIVE) 03/17/21 03/17/21 Range/Units 11:05 11:30 WBC (4.0-10.0) x10^3/uL RBC (4.00-5.50) x10^6/uL Hgb (12.0-16.0) g/dL Hct (33.0-47.0) % MCV (78.0-93.0) fL MCH (26.0-32.0) pg MCHC (32.0-36.0) g/dL RDW Coeff of Audrey (10.0-15.0) % Plt Count (130-400) x10^3/uL Add Manual Diff Neutrophils % (Manual) (50-80) % Band Neutrophils % (0-6) % Lymphocytes % (Manual) (25-50) % Monocytes % (Manual) (2-11) % Eosinophils % (Manual) (0-4) % Metamyelocytes % (0) % Blast Cells % (0) % Nucleated RBCs (0-5) /100WBC Platelet Estimate Hypochromasia Anisocytosis Sodium (136-145) mmol/L Potassium (3.5-5.1) mmol/L Chloride (98-107) mmol/L Carbon Dioxide (21-32) mmol/L Anion Gap (5-15) mmol/L BUN (7-18) mg/dL Creatinine (0.55-1.02) mg/dL Est Cr Clr Drug Dosing Estimated GFR (MDRD) Glucose (70-99) mg/dL Lactic Acid (0.4-2.0) mmol/L Uric Acid 7.4 H (2.6-6.0) mg/dL Calcium (8.5-10.1) mg/dL Corrected Calcium (8.5-10.1) mg/dL Magnesium (1.8-2.4) mg/dL Total Bilirubin (0.2-1.0) mg/dL AST (15-37) U/L ALT (14-59) U/L Alkaline Phosphatase (46-116) U/L Lactate Dehydrogenase 2352 H (81-234) U/L Troponin I High Sens (<=51) ng/L C-Reactive Protein (<=0.9) mg/dL Total Protein (6.4-8.2) g/dL Albumin (3.4-5.0) g/dL Globulin Albumin/Globulin Ratio Lipase (73-393) U/L SARS CoV-2 RNA Rapid TOR Negative (NEGATIVE) Meds: Medications Generic Name Dose Route Start Last Admin Trade Name Freq PRN Reason Stop Dose Admin Allopurinol 100 mg 03/18/21 08:00 Allopurinol 100 Mg Tab PO DAILY LAINA Aspirin 81 mg 03/18/21 08:00 Aspirin 81 Mg Tab.Ec PO DAILY LAINA Clopidogrel Bisulfate 75 mg 03/17/21 20:00 Clopidogrel 75 Mg Tab PO BEDTIME LAINA Enalapril Maleate 5 mg 03/18/21 08:00 Enalapril 5 Mg Tab PO DAILY LAINA Hydromorphone HCl 1 mg 03/17/21 14:00 Hydromorphone 1 Mg/Ml Syringe IVPUSH Q4H LAINA Hydromorphone HCl 1 mg 03/17/21 12:13 Hydromorphone 1 Mg/Ml Syringe IVPUSH Q1H PRN Pain Lactated Ringer's 1,000 mls @ 250 mls/hr 03/17/21 11:00 03/17/21 11:15 Ringers, Lactated IV 250 mls/hr ASDIRECTED LAINA Administration Sodium Chloride 1,000 mls @ 100 mls/hr 03/17/21 12:15 Normal Saline IV ASDIRECTED LAINA Lactobacillus Rhamnosus 1 cap 03/17/21 20:00 Lactobacillus Rhamnosus Gg (Probiotic) Cap PO BID LAINA Non-Formulary Medication 5 mg 03/17/21 20:00 Ruxolitinib Phosphate [Jakafi] PO BID LAINA Non-Formulary Medication 4 mg 03/18/21 08:00 Tolterodine Tartrate [Tolterodine Tartrate Er] PO DAILY LAINA Ondansetron HCl 4 mg 03/17/21 12:13 Ondansetron 4 Mg/2 Ml Sdv IVPUSH Q8H PRN Nausea Simvastatin 40 mg 03/17/21 20:00 Simvastatin 40 Mg Tab PO BEDTIME LAINA Sodium Chloride 10 ml 03/17/21 10:53 Sodium Chloride 0.9% 10 Ml Syringe FLUSH ASDIRECTED PRN Keep Vein Open Trospium 20 mg 03/17/21 20:00 Trospium 20 Mg Tab PO BID [facility] Discontinued Medications Generic Name Dose Route Start Last Admin Trade Name Freq PRN Reason Stop Dose Admin Diphenhydramine HCl 25 mg 03/17/21 11:41 03/17/21 12:05 Diphenhydramine 50 Mg/Ml Sdv IVPUSH 03/17/21 11:42 25 mg ONETIME ONE Administration Hydromorphone HCl 0.5 mg 03/17/21 10:56 03/17/21 11:15 Hydromorphone 0.5 Mg/0.5 Ml Syringe IV 03/17/21 10:57 0.5 mg ONETIME ONE Administration Ondansetron HCl 4 mg 03/17/21 11:18 03/17/21 11:22 Ondansetron 4 Mg/2 Ml Sdv IV 03/17/21 11:19 4 mg ONETIME ONE Administration - Re-Assessments/Exams Free Text/Narrative Re-Assessment/Exam: 03/17/21 12:30 We started with a 500 mill bolus of LR and then to 50 an hour. Labs are drawn. Blood cultures x2 because the patient is febrile. She was given Dilaudid for pain Zofran for nausea. I did review her chart in [facility] and it shows that she has been being managed with some outpatient oral chemotherapy Jakafi. She had a recent decrease in this dosage. She has had a white blood cell count near 70. Last blast cells were 4%. 03/17/21 12:32 Laboratory evaluation today with a WBC of 69.5, hemoglobin 9.3 platelet count 72 which is about at her baseline. CMP with a normal potassium of 4.2 sodium 137, creatinine 1.1 and a BUN of 14, glucose 96 liver enzymes are rather unremarkable. Magnesium normal at 1.8. Lactic acid negative at 0.9. Uric acid 7.4 which is about what she has been in the clinic. Lactate dehydrogenase 2352 which is up from 1700. C-reactive protein 12.8. Lipase is low at 21. Covid is negative. Patient PCP team Kris CARDOSO did come and see the patient in the emergency department and has been in contact with the patients primary oncologist. The plan will be to admit her here acute care for hydration pain management and augmentation of her chemotherapy. Patient's daughter is at the bedside I discussed the plan of care with the patient as well as her daughter and they are quite comfortable with this plan. She continued to be somewhat nauseated in the emergency department and was given some Benadryl with resolution. Her pain was much improved as well. 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, Thrombocytopenia Leukocytosis Qualifiers: Leukocytosis type: unspecified Qualified Code(s): D72.829 - Elevated white blood cell count, unspecified - Discharge Information - My Orders Last 24 Hours: My Active Orders 03/17/21 10:53 UA RFX COSME AND CULT IF INDIC [URIN] Stat Sodium Chloride 0.9% [Saline Flush] 10 ml FLUSH ASDIRECTED PRN Peripheral IV Insertion Adult [OM.PC] Stat 03/17/21 10:54 EKG Documentation Completion [RC] STAT Chest 1V Frontal [CR] Stat 03/17/21 11:00 Lactated Ringers [Ringers, Lactated] 1,000 ml IV ASDIRECTED - Assessment/Plan Last 24 Hours: My Active Orders 03/17/21 10:53 UA RFX COSME AND CULT IF INDIC [URIN] Stat Sodium Chloride 0.9% [Saline Flush] 10 ml FLUSH ASDIRECTED PRN Peripheral IV Insertion Adult [OM.PC] Stat 03/17/21 10:54 EKG Documentation Completion [RC] STAT Chest 1V Frontal [CR] Stat 03/17/21 11:00 Lactated Ringers [Ringers, Lactated] 1,000 ml IV ASDIRECTED
--- NOTE | 2021-03-17 12:41 | CR ---
[id number] RAD/RAD Chest PA or AP 1V EXAM: SINGLE VIEW CHEST. INDICATION: HYPOXIA COMPARISON: CORRELATION IS MADE WITH THE RECENT CAT SCAN FINDINGS: There is mild edema The cardiac silhouette is enlarged The aorta is tortuous There is scoliosis IMPRESSION: MILD CHF Live Buchanan MD 03/17/21 [id number] Thank you for allowing us to participate in the care of your patient.
[2021-03-17] MEDS: HYDROmorphone 1 MG/ML Syringe IVPUSH SCH ×3 (13:43→21:57)
[2021-03-17] MEDS ORDERED: Furosemide 40 MG/4 ML VIAL IV ONE (15:13)
[2021-03-17] MEDS ORDERED: Furosemide 20 MG/2 ML VIAL IV ONE (15:13)
[2021-03-17] MEDS: cefTRIAXone 1 GM Vial IVPUSH SCH (17:03)
[2021-03-17] MEDS: Lactobacillus Rhamnosus GG (Probiotic) Cap PO SCH (19:59)
[2021-03-17] MEDS: Trospium 20 MG Tab PO SCH (19:59)
[2021-03-17] MEDS: Simvastatin 40 MG Tab PO SCH (19:59)
[2021-03-17] MEDS: Clopidogrel 75 MG Tab PO SCH (19:59)
[2021-03-17] MEDS ORDERED: RUXOLITINIB PHOSPHATE 5 MG PO SCH (20:00)
[2021-03-17] MEDS ORDERED: Trospium 20 MG Tab PO SCH (20:00)
[2021-03-17] MEDS: RUXOLITINIB PHOSPHATE 5 MG PO SCH (20:02)
--- NOTE | 2021-03-17 21:53 | HP ---
CHIEF COMPLAINT: Uncontrolled pain. HISTORY OF PRESENT ILLNESS: 75-year-old female patient with a past medical history of type 2 diabetes, hyperlipidemia, hypertension, primary myelofibrosis, grade 1 follicular lymphoma, and thrombocytopenia who was seen in the emergency room earlier today for uncontrolled pain. The patient had originally been seen in the emergency room at [facility] on 03/15/2021 for the same complaint. The patient had a complete workup and was found to have no acute etiology; therefore, she was sent home on p.o. pain medication. The patient's pain has progressively gotten worse. The patient has significant splenomegaly seen on CT scan secondary to her lymphoma and myelofibrosis. In the emergency room today, the patient was given Dilaudid which significantly helped her pain. The patient has chronically elevated white blood cell count due to her lymphoma and myelofibrosis. Chest x-ray showed mild CHF. The patient was hypoxic on presentation to the emergency room. PAST MEDICAL HISTORY: 1. Diabetes type 2, controlled, not on long-term insulin. 2. Dyslipidemia associated with type 2 diabetes. 3. Hypertension associated with diabetes. 4. Macular degeneration. 5. Primary myelofibrosis. 6. Grade 1 follicular lymphoma of lymph nodes of neck. 7. Thrombocytopenia. 8. PVD. 9. Early satiety. 10.Cigarette smoker. 11.Diverticulitis. 12.Nodule of parotid gland. 13.Fatigue. 14.Carlin cyst of the right knee. PAST SURGICAL HISTORY: 1. section. 2. Soft tissue mass extraction. 3. Lymph node removal. 4. Bone marrow biopsy. FAMILY HISTORY: The patient's mom and father are . The patient's mother from lymphoma. SOCIAL HISTORY: The patient is a current cigarette smoker. No alcohol use. No illegal drug use. The patient is retired. REVIEW OF SYSTEMS: Constitutional: The patient complains of severe pain of the left upper quadrant. Skin: Negative. Respiratory: Mild shortness of breath, no cough. Cardiovascular: The patient denies any chest pain. Abdomen: The patient complains of left upper quadrant pain that is severe, the patient complains of watery foul-smelling diarrhea, decreased appetite, decreased p.o. fluid intake. Neurological: Negative. PHYSICAL EXAMINATION: General: The patient is alert. The patient is cooperative. The patient is in moderate distress secondary to pain. Respiratory: Bibasilar crackles, otherwise decreased throughout. Cardiovascular: Regular rate and rhythm, no murmur. Abdomen: Severe left upper quadrant pain to palpation; significant splenomegaly; bowel sounds are hypoactive x4. Skin: Intact, warm, and dry. Neurological: The patient is alert. The patient is cooperative. The patient in moderate distress secondary to pain. No focal neurological deficits. LABORATORY STUDIES: 1. CBC: White blood cell count 69.5, hemoglobin 9.3, hematocrit 29.4, platelet count 72,000. 2. CMP: Sodium 137, potassium 4.2, chloride 100, CO2 of 24, anion gap 17.2, BUN 14, creatinine 1.1, GFR 48, glucose 96, calcium 8.3, AST 55, ALT 19, alkaline phosphatase 90, total protein 6.7, albumin 3.1. 3. Lactic acid 0.9. 4. Uric acid 7.4. 5. Magnesium 1.8. 6. C-reactive protein 12.8. 7. Troponin 25. IMAGING STUDIES: Chest x-ray reveals mild CHF. ASSESSMENT: 1. Uncontrolled pain secondary to neoplasm. 2. Advanced myeloproliferative disease. 3. Myelofibrosis. 4. Cytopenias. 5. Essential hypertension. 6. Diabetes type 2. 7. History of cerebrovascular accident. 8. Hyperlipidemia secondary to diabetes. 9. Follicular lymphoma. 10. UTI with nitrates PLAN: 75-year-old female patient who will be admitted to the acute care floor for the above diagnoses. For the patient's uncontrolled cancer pain, we will start the patient on 1 mg of IV Dilaudid every 4 hours scheduled. The patient will also have 1 mg every hour as needed. Continue home medications the same. The patient will be started on ceftriaxone 1 g every 24 hours for positive nitrites in the urine. We will gently rehydrate the patient with normal saline at 50 mL an hour. The patient will be given 20 mg of IV Lasix one time dose for her mild CHF. I did speak with Dr. Silver, oncologist at [facility]. We will increase the patient's oral chemotherapy to 10 mg twice daily. We will continue to monitor laboratory work. Anticipated discharge over the next three to four days depending upon how the patient does with her pain control. We will hold off on physical or occupational therapy at this time, given the patient's significant pain. Once under control, may consider therapies. Case Management will be consulted for discharge planning. Recheck laboratory work tomorrow morning. This patient was seen and examined by me as an [facility] provider. TB: 03/17/2021 16:09:07 MODL: 03/17/2021 21:45:39 /[id number] MTDD
[2021-03-18] MEDS: HYDROmorphone 1 MG/ML Syringe IVPUSH SCH ×6 (02:04→21:52)
[2021-03-18] MEDS: Allopurinol 100 MG Tab PO SCH (07:38)
[2021-03-18] MEDS: Enalapril 5 MG Tab PO SCH (07:38)
[2021-03-18] MEDS: Aspirin 81 MG Tab.EC PO SCH (07:38)
[2021-03-18] MEDS: RUXOLITINIB PHOSPHATE 5 MG PO SCH ×2 (07:39→19:53)
[2021-03-18] MEDS: Trospium 20 MG Tab PO SCH ×2 (07:39→19:53)
[2021-03-18] MEDS: Lactobacillus Rhamnosus GG (Probiotic) Cap PO SCH ×2 (07:39→19:53)
[2021-03-18] MEDS: cefTRIAXone 1 GM Vial IVPUSH SCH (07:40)
--- NOTE | 2021-03-18 13:57 | PN ---
Progress Note for JASVIR CM Date: 03/18/2021 Room #: VM.206 CHIEF COMPLAINT: Uncontrolled pain. SUBJECTIVE: This 75-year-old female patient was admitted to the acute care floor yesterday at [facility] for uncontrolled pain secondary to splenomegaly and myelofibrosis. The patient was started on scheduled IV Dilaudid as well as p.r.n. Dilaudid. The patient states this morning she is doing much better. She feels that her pain control is doing well. She states that it still hurts to take in a deep breath. Activity does make her pain worse. The patient denies any headaches, dizziness, or lightheadedness. The patient has not had any chest pain or palpitations. The patient denies any shortness of breath or cough. The patient has left upper quadrant abdominal pain secondary to splenomegaly. She has not felt nauseated or had any vomiting. The patient had diarrhea on admission, but this seems to have improved. The patient denies any fevers or chills. No skin problems. REVIEW OF SYSTEMS: As above. PHYSICAL EXAMINATION: Vital Signs: Temperature 97.4, pulse 65, blood pressure 107/52, oxygen 98 on 4L. Skin: Intact, warm, and dry. Respiratory: Lungs are diminished throughout, but clear. Cardiovascular: Regular rate and rhythm, no murmur. Gastrointestinal: Tender to palpation in left upper quadrant, bowel sounds are hypoactive x4. Abdomen is soft. Neurologic: No focal neurological deficits. The patient is alert. The patient does not appear to be in any acute distress. The patient is cooperative. LABORATORY STUDIES: 1. CBC: White blood cell count 56.0, hemoglobin 7.9, hematocrit 25.2, platelet count 66,000. 2. CMP: Sodium 137, potassium 4.0, chloride 102, CO2 of 29, anion gap 10.0, BUN 16, creatinine 1.0, GFR 54, glucose 110, calcium 7.9, AST 45, ALT 16, alkaline phosphatase 73, protein 5.8, albumin 2.5. ASSESSMENT: 1. Uncontrolled pain secondary to neoplasm. 2. Advanced myeloproliferative disease. 3. Myelofibrosis. 4. Cytopenias. 5. Essential hypertension. 6. Diabetes type 2, controlled, not on long-term insulin. 7. History of cerebrovascular accident. 8. Hyperlipidemia secondary to diabetes. 9. Follicular lymphoma. 10.Urinary tract infection with positive nitrites. PLAN: This 75-year-old female patient was admitted to the acute care floor at [facility] for the above diagnosis. Her pain is doing better. We will continue on scheduled IV Dilaudid today. Continue with p.r.n. Dilaudid. We will discontinue IV fluids if the patient is taking p.o. fluids well. The patient did respond well to the 1 dose of Lasix yesterday. We will continue to monitor closely today. If the patient does well, could anticipate discharge home tomorrow on p.o. pain medication. The patient will continue on Rocephin 1 g IV every 24 hours for her UTI. Recheck laboratory work tomorrow. This patient was seen and examined by me as an [facility] provider. TB: 03/18/2021 08:01:36 MODL: 03/18/2021 13:46:01 /[id number] MTDD
[2021-03-18] MEDS: diphenhydrAMINE 50 MG/ML SDV IVPUSH PRN (18:26)
[2021-03-18] MEDS: Simvastatin 40 MG Tab PO SCH (19:52)
[2021-03-18] MEDS: Clopidogrel 75 MG Tab PO SCH (19:54)
[2021-03-19] MEDS: HYDROmorphone 1 MG/ML Syringe IVPUSH SCH ×6 (01:33→21:45)
[2021-03-19] MEDS: diphenhydrAMINE 50 MG/ML SDV IVPUSH PRN ×2 (05:39→21:45)
[2021-03-19 07:37] LABS: CHLORIDE,CL 102 mmol/L (98-107); SODIUM,NA 138 mmol/L (136-145)
[2021-03-19 07:39] LABS: ANION GAP 11.2 mmol/L (5-15)
[2021-03-19] MEDS: Trospium 20 MG Tab PO SCH ×2 (08:48→20:57)
[2021-03-19] MEDS: Enalapril 5 MG Tab PO SCH (08:48)
[2021-03-19] MEDS: Allopurinol 100 MG Tab PO SCH (08:48)
[2021-03-19] MEDS: cefTRIAXone 1 GM Vial IVPUSH SCH (08:48)
[2021-03-19] MEDS: Aspirin 81 MG Tab.EC PO SCH (08:48)
[2021-03-19] MEDS: Lactobacillus Rhamnosus GG (Probiotic) Cap PO SCH ×2 (08:48→20:57)
[2021-03-19] MEDS: RUXOLITINIB PHOSPHATE 5 MG PO SCH ×2 (08:53→20:56)
--- NOTE | 2021-03-19 15:45 | PN ---
Progress Note for JSAVIR CM Date: 03/19/2021 Room #: VM.206 CHIEF COMPLAINT: Unresponsive. SUBJECTIVE: This 75-year-old female patient was admitted to the acute care floor at [facility] for uncontrolled pain secondary to neoplasm. The patient was started on scheduled IV Dilaudid which has helped to control her pain. The patient offers no specific complaints this morning. She states she is currently pain free. The patient denies any headaches, dizziness, or lightheadedness. The patient is feeling very tired. The patient's appetite has been good. She has not had a bowel movement since her admission. The patient is urinating okay. The patient denies any chest pain or palpitations. The patient denies any shortness of breath or cough. No abdominal pain. The patient denies any nausea or vomiting. REVIEW OF SYSTEMS: Constitutional: Negative. Skin: Negative. Respiratory: Negative. Cardiovascular: Negative. Abdomen: Negative. Neurological: Negative. PHYSICAL EXAMINATION: Vital Signs: Temperature 97.9, pulse 81, blood pressure 115/61, respiratory rate 16, oxygen saturation 93% on 2 L. Skin: Intact, warm, and dry. Respiratory: Lungs are decreased throughout, but clear. Cardiac: Regular rate and rhythm, no murmur. Abdomen: Soft, nontender. Bowel sounds are hypoactive x4. Neurological: The patient is alert. The patient is oriented to person, place, and time. No new focal neurological deficits. LABORATORY STUDIES: 1. CBC: White blood cell count 60.1, hemoglobin 8.0, hematocrit 26.1, and platelets 78,000. 2. CMP: Sodium 138, potassium 4.2, chloride 102, CO2 of 29, anion gap 11.2, BUN 18, creatinine 0.9, GFR greater than 60, glucose 90, calcium 7.7, AST 51, ALT 19, alkaline phosphatase 92, total protein 5.9, albumin 2.6. ASSESSMENT: 1. Uncontrolled pain secondary to neoplasm. 2. Advanced myeloproliferative disease. 3. Mild myelofibrosis. 4. Cytopenias. 5. Essential hypertension. 6. Type 2 diabetes, controlled, not on long-term insulin. 7. History of cerebrovascular accident. 8. Hyperlipidemia secondary to diabetes. 9. Follicular lymphoma. 10.Urinary tract infection with positive nitrites. PLAN: A 75-year-old female patient admitted to the acute care floor at [facility] for the above diagnosis. The pain is doing much better today. The patient will continue on scheduled IV Dilaudid today. Continue with p.r.n. Dilaudid. The patient is eating and drinking well; therefore, she does not require IV fluids. Continue to closely monitor the patient. Physical and Occupational Therapy will see the patient today. If the patient requires physical therapy, she will be switched to swing bed tomorrow, if not she will be discharged home. The patient is a code 1. We will recheck laboratory work tomorrow. This patient was seen and examined by me as an [facility] provider. TB: 03/19/2021 08:04:35 MODL: 03/19/2021 15:34:58 /[id number]
[2021-03-19] MEDS: Clopidogrel 75 MG Tab PO SCH (20:57)
[2021-03-19] MEDS: Simvastatin 40 MG Tab PO SCH (20:57)
[2021-03-20] MEDS: HYDROmorphone 1 MG/ML Syringe IVPUSH SCH ×4 (01:49→15:06)
[2021-03-20] MEDS: cefTRIAXone 1 GM Vial IVPUSH SCH (08:40)
[2021-03-20] MEDS: Allopurinol 100 MG Tab PO SCH (08:41)
[2021-03-20] MEDS: Lactobacillus Rhamnosus GG (Probiotic) Cap PO SCH (08:41)
[2021-03-20] MEDS: Trospium 20 MG Tab PO SCH (08:41)
[2021-03-20] MEDS: Enalapril 5 MG Tab PO SCH (08:41)
[2021-03-20] MEDS: Aspirin 81 MG Tab.EC PO SCH (08:41)
[2021-03-20] MEDS: RUXOLITINIB PHOSPHATE 5 MG PO SCH (08:42)
[2021-03-20 09:06] LABS: ANION GAP 10.4 mmol/L (5-15)
--- NOTE | 2021-03-20 12:40 | DISCH ---
ADMITTING DIAGNOSES: 1. Uncontrolled pain secondary to neoplasm. 2. Advanced myeloproliferative disease. 3. Myelofibrosis. 4. Cytopenia. 5. Essential hypertension. 6. Diabetes type 2. 7. History of cerebrovascular accident. 8. Hyperlipidemia secondary to diabetes. 9. Follicular lymphoma. 10.Urinary tract infection with nitrites. DISCHARGE DIAGNOSES: 1. Advanced myeloproliferative disease. 2. Myelofibrosis. 3. Follicular lymphoma. 4. Cytopenias. 5. Weakness and deconditioning. 6. Essential hypertension. 7. Diabetes type 2. 8. History of cerebrovascular accident. 9. Hyperlipidemia secondary to diabetes. 10.Urinary tract infection, resolved. BRIEF HOSPITAL COURSE: The patient was admitted to the acute care floor at [facility] on 03/17 for uncontrolled pain secondary to neoplasm. The patient was placed on IV Dilaudid, which controlled her pain. The patient remained hemodynamically stable. The patient was found to have a UTI and was started on Rocephin IV. The patient's weakness and deconditioning secondary to her neoplasm medically necessitates swing bed for further physical therapy. CONSULTATIONS: Physical Therapy, Occupational Therapy, Case Management. DIET: Diabetic. ACTIVITY: Per PT. REVIEW OF SYSTEMS: Constitutional: Negative. Skin: Negative. Respiratory: Negative. Cardiovascular: Negative. Abdomen: Negative. Neurological: Negative. DISCHARGE PHYSICAL EXAMINATION: Vital Signs: Temperature 97.7, pulse 92, blood pressure 101/41, respiratory rate 17, oxygen 90% on room air. Skin: Intact, warm, and dry. Respiratory: Lungs are decreased, but clear throughout. Cardiovascular: Regular rate and rhythm. No murmur. Abdomen: Soft. Tenderness in the left upper quadrant secondary to splenomegaly. Bowel sounds are hypoactive x4. Neurological: The patient is alert. The patient is oriented to person, place, and time. No new focal neurological deficits. General: The patient is alert. The patient does not appear to be in any acute distress. The patient is cooperative. DISCHARGE LABORATORY WORK: 1. CBC: White blood cell count 52.6, hemoglobin 8.2, hematocrit 27.0, platelets 74,000. 2. BMP: Results pending. DISCHARGE MEDICATIONS: 1. Allopurinol 100 mg 1 tablet p.o. daily. 2. Aspirin 81 mg 1 tablet p.o. daily. 3. Plavix 75 mg 1 tablet p.o. daily. 4. Enalapril 5 mg 1 tablet p.o. daily. 5. Hydromorphone 1 mg p.o. every 4 hours as needed. 6. Lactobacillus 1 cap p.o. twice daily. 7. Jakafi 10 mg 1 tablet p.o. twice daily. 8. Simvastatin 40 mg 1 tablet p.o. daily. 9. Sanctura 20 mg 1 tablet p.o. twice daily. ASSESSMENT: 1. Advanced myeloproliferative disease. 2. Myelofibrosis. 3. Cytopenias. 4. Follicular lymphoma. 5. Weakness and deconditioning secondary to neoplasm. 6. Hypertension associated with type 2 diabetes. 7. Type 2 diabetes, not on long-term insulin, controlled. 8. Hyperlipidemia secondary to diabetes. 9. Urinary tract infection, resolved. 10.History of cerebrovascular accident. PLAN: 75-year-old female patient was admitted to the acute care floor on 03/17/2021. Will be discharged to swing bed today for physical therapy to work on weakness and deconditioning secondary to neoplasm. We will continue the patient's current medications without any changes. The patient will finish up Rocephin today and then discontinue. No changes with any other medications. The patient is a code 1. The patient does wish to transfer to a higher level of care should the need arise. No need to check laboratory work on swing bed. The admission H&P is current and can be used for Swing Bed H&P. This patient was seen and examined by me as an [facility] provider. TB: 03/20/2021 09:03:44 MODL: 03/20/2021 12:33:49 /[id number] HOOD
== END 2021-03-20 13:48 | disposition swing bed (61) | DRG 948 ==
LOC: VM.ED 10:49 → VM.MS 11:39
PROVIDERS: ADMIT Nurse Practitioner Family; ATTEND Nurse Practitioner Family
DX: G89.3 Neoplasm related pain (acute) (chronic) (principal); N39.0 Urinary tract infection, site not specified; C94.6 Myelodysplastic disease, not elsewhere classified; D75.81 Myelofibrosis; C82.90 Follicular lymphoma, unspecified, unspecified site; C82.04 Follicular lymphoma grade I, lymph nodes of axilla and upper limb; R53.1 Weakness; D75.9 Disease of blood and blood-forming organs, unspecified; E78.5 Hyperlipidemia, unspecified; R11.2 Nausea with vomiting, unspecified; F17.210 Nicotine dependence, cigarettes, uncomplicated; I11.0 Hypertensive heart disease with heart failure; R19.7 Diarrhea, unspecified; D47.1 Chronic myeloproliferative disease; I50.9 Heart failure, unspecified; D72.829 Elevated white blood cell count, unspecified; E66.9 Obesity, unspecified; D69.6 Thrombocytopenia, unspecified; H35.30 Unspecified macular degeneration; Z98.890 Other specified postprocedural states; E78.00 Pure hypercholesterolemia, unspecified; I10 Essential (primary) hypertension; Z86.73 Personal history of transient ischemic attack (TIA), and cerebral infarction without residual deficits; E11.9 Type 2 diabetes mellitus without complications; Z79.02 Long term (current) use of antithrombotics/antiplatelets; Z79.82 Long term (current) use of aspirin; Z79.899 Other long term (current) drug therapy; Z20.822 Contact with and (suspected) exposure to COVID-19
CPT/HCPCS: 36415; 71045; 80053; 83605; 83615; 83690; 83735; 84484; 84550; 85025; 86140; 87088; 93005; 96374; 96375; 99285; J1170; J2405; J7120; U0002; 80048; 81001; 82947; 87040; 87086; 87186; 97161-GP; 97165-GO; A9270-GY; J0696; J1200; J1940; J7030

== ENCOUNTER 2021-03-20 09:07 | Inpatient (IN) | payer MEDICARE ==
[~2021-03-20 09:07] MED LIST changes: +Docusate Sodium 100 MG Cap PO PRN; -Lactated Ringers 1,000 ML IV SCH; +Magnesium Hydroxide 400 MG/5 ML Susp 30 ML Cup PO PRN; +Polyethylene Glycol 3350 Powder 17 GM Packet PO PRN
[2021-03-20] MEDS ORDERED: diphenhydrAMINE 25 MG Cap PO PRN (09:14)
[2021-03-20] MEDS: Simvastatin 40 MG Tab PO SCH (19:34)
[2021-03-20] MEDS: Trospium 20 MG Tab PO SCH (19:34)
[2021-03-20] MEDS: Clopidogrel 75 MG Tab PO SCH (19:34)
[2021-03-20] MEDS: Lactobacillus Rhamnosus GG (Probiotic) Cap PO SCH (19:34)
[2021-03-20] MEDS: RUXOLITINIB PHOSPHATE 5 MG PO SCH (22:49)
[2021-03-21] MEDS: RUXOLITINIB PHOSPHATE 5 MG PO SCH ×2 (07:56→20:27)
[2021-03-21] MEDS: HYDROmorphone 2 MG Tab PO PRN (07:56)
[2021-03-21] MEDS: Enalapril 5 MG Tab PO SCH (07:57)
[2021-03-21] MEDS: Allopurinol 100 MG Tab PO SCH (07:58)
[2021-03-21] MEDS: Aspirin 81 MG Tab.EC PO SCH (07:58)
[2021-03-21] MEDS: Lactobacillus Rhamnosus GG (Probiotic) Cap PO SCH ×2 (07:58→20:27)
[2021-03-21] MEDS: Trospium 20 MG Tab PO SCH ×2 (07:58→20:28)
[2021-03-21] MEDS: Clopidogrel 75 MG Tab PO SCH (20:27)
[2021-03-21] MEDS: Simvastatin 40 MG Tab PO SCH (20:27)
[2021-03-22] MEDS: Allopurinol 100 MG Tab PO SCH (09:17)
[2021-03-22] MEDS: Lactobacillus Rhamnosus GG (Probiotic) Cap PO SCH ×2 (09:17→19:50)
[2021-03-22] MEDS: Trospium 20 MG Tab PO SCH ×2 (09:17→19:50)
[2021-03-22] MEDS: Aspirin 81 MG Tab.EC PO SCH (09:17)
[2021-03-22] MEDS: Enalapril 5 MG Tab PO SCH (09:17)
[2021-03-22] MEDS: RUXOLITINIB PHOSPHATE 5 MG PO SCH (11:06)
[2021-03-22] MEDS: RUXOLITINIB PHOSPHATE 10 MG PO SCH ×2 (11:16→19:50)
[2021-03-22] MEDS: Simvastatin 40 MG Tab PO SCH (19:50)
[2021-03-22] MEDS: Clopidogrel 75 MG Tab PO SCH (19:50)
[2021-03-23] MEDS: Trospium 20 MG Tab PO SCH ×2 (08:56→20:39)
[2021-03-23] MEDS: Enalapril 5 MG Tab PO SCH (08:56)
[2021-03-23] MEDS: Aspirin 81 MG Tab.EC PO SCH (08:56)
[2021-03-23] MEDS: Allopurinol 100 MG Tab PO SCH (08:56)
[2021-03-23] MEDS: Lactobacillus Rhamnosus GG (Probiotic) Cap PO SCH ×2 (08:56→20:38)
[2021-03-23] MEDS: RUXOLITINIB PHOSPHATE 10 MG PO SCH (10:55)
[2021-03-23] MEDS: HYDROmorphone 2 MG Tab PO PRN ×2 (18:43→23:20)
[2021-03-23] MEDS: Clopidogrel 75 MG Tab PO SCH (20:39)
[2021-03-23] MEDS: RUXOLITINIB PHOSPHATE 15 MG PO SCH (20:40)
[2021-03-23] MEDS: Simvastatin 40 MG Tab PO SCH (20:41)
[2021-03-24] MEDS: HYDROmorphone 2 MG Tab PO PRN (05:05)
[2021-03-24] MEDS: Ondansetron 4 MG Tab.DIS PO PRN (07:22)
[2021-03-24] MEDS: Lactobacillus Rhamnosus GG (Probiotic) Cap PO SCH ×2 (07:23→20:08)
[2021-03-24] MEDS: Allopurinol 100 MG Tab PO SCH (07:23)
[2021-03-24] MEDS: Aspirin 81 MG Tab.EC PO SCH (07:23)
[2021-03-24] MEDS: Trospium 20 MG Tab PO SCH ×2 (07:23→20:08)
[2021-03-24] MEDS: Enalapril 5 MG Tab PO SCH (07:23)
[2021-03-24] MEDS: RUXOLITINIB PHOSPHATE 15 MG PO SCH (07:24)
[2021-03-24] MEDS: Simvastatin 40 MG Tab PO SCH (20:08)
[2021-03-24] MEDS: Clopidogrel 75 MG Tab PO SCH (20:08)
[2021-03-25] MEDS: HYDROmorphone 2 MG Tab PO PRN (05:32)
[2021-03-25] MEDS: Aspirin 81 MG Tab.EC PO SCH (07:57)
[2021-03-25] MEDS: Enalapril 5 MG Tab PO SCH (07:57)
[2021-03-25] MEDS: Trospium 20 MG Tab PO SCH (07:57)
[2021-03-25] MEDS: Lactobacillus Rhamnosus GG (Probiotic) Cap PO SCH (07:57)
[2021-03-25] MEDS: Allopurinol 100 MG Tab PO SCH (07:57)
[2021-03-25] MEDS: Ondansetron 4 MG Tab.DIS PO PRN (08:55)
--- NOTE | 2021-03-25 13:37 | DISCH ---
ADMITTING DIAGNOSES: 1. Uncontrolled pain secondary to neoplasm. 2. Advanced myeloproliferative disease. 3. Myelofibrosis. 4. Cytopenia. 5. Essential hypertension. 6. Diabetes type 2. 7. History of cerebrovascular accident. 8. Hyperlipidemia secondary to diabetes. 9. Follicular lymphoma. 10.Urinary tract infection with nitrates. DISCHARGE DIAGNOSES: 1. Advanced myeloproliferative disease. 2. Myelofibrosis. 3. Follicular lymphoma. 4. Cytopenias. 5. Weakness and deconditioning-resolved. 6. Essential hypertension secondary to diabetes type 2. 7. Diabetes type 2, controlled, not on long-term insulin. 8. History of cerebrovascular accident. 9. Hyperlipidemia secondary to diabetes. 10.Urinary tract infection, resolved. 11.Uncontrolled pain secondary to neoplasm, resolved. BRIEF HOSPITAL COURSE: The patient was admitted to the acute care floor at [facility] on 03/17/2021 for uncontrolled pain secondary to neoplasm. The patient was placed on IV Dilaudid which worked well for her pain. The patient remained hemodynamically stable while on swing bed. The patient was found to have a UTI and was started on IV Rocephin. The patient's weakness and deconditioning secondary to her neoplasm medically necessitated swing bed for further physical therapy for strengthening and ambulation. The patient progressed well on swing bed. She was able to complete her physical therapy and is able to go home today. CONSULTATIONS: Physical Therapy, Occupational Therapy, Case Management. DIET: Diabetic. ACTIVITY: Per PT. REVIEW OF SYSTEMS: Constitutional: Negative. Skin: Negative. Respiratory: Negative. Cardiovascular: Negative. Abdomen: Negative. Neurological: Negative. PHYSICAL EXAMINATION: Vital Signs: Temperature 96.3, pulse 80, blood pressure 116/53, respiratory rate 16, oxygen saturation 95% on room air. Skin: Intact, warm, and dry. Respiratory: Lungs are decreased, but clear throughout. Cardiovascular: Regular rate and rhythm, no murmur. Abdomen: Soft, tenderness in the left upper quadrant secondary to splenomegaly. Bowel sounds are normoactive x4. Neurological: The patient is alert. The patient is oriented to person, place, and time. No new focal neurological deficits. General: The patient is alert. The patient does not appear to be in any acute distress. The patient is cooperative. DISCHARGE LABORATORY WORK: None. DISCHARGE IMAGING STUDIES: None. DISCHARGE MEDICATIONS: 1. Allopurinol 100 mg 1 tablet p.o. daily. 2. Aspirin 81 mg 1 tablet p.o. daily. 3. Plavix 75 mg 1 tablet p.o. daily at bedtime. 4. Enalapril 5 mg 1 tablet p.o. daily for Hypertension 5. Dilaudid 2 mg every 4 hours as needed for pain 6. Culturelle 1 capsule p.o. twice daily. 7. Zofran 4 mg ODT every 6 hours as needed for nausea/vomiting 8. Jakafi 10 mg 1 tablet p.o. twice daily for Neoplasm 9. Zocor 40 mg 1 tablet p.o. daily at bedtime for Hyperlipidemia 10.Sanctura 20 mg 1 tablet p.o. twice daily for OAB ASSESSMENT: 1. Advanced myeloproliferative disease. 2. Myelofibrosis. 3. Cytopenias. 4. Follicular lymphoma. 5. Weakness and deconditioning secondary to neoplasm-resolved. 6. Hypertension associated with type 2 diabetes. 7. Type 2 diabetes, not on long-term insulin-controlled. 8. Hyperlipidemia secondary to diabetes. 9. Urinary tract infection-resolved. 10.History of cerebrovascular accident. PLAN: A 75-year-old female patient admitted to the acute care floor on 03/17/2021, was then transferred to the swing bed for physical therapy, will be discharged home today with home health. Continue same medications with the addition of Dilaudid and Zofran. Diet and activity the same. The patient will follow up with her PCP on 04/05/2021. The patient will follow up with Oncology next week as well. The patient was discharged in hemodynamic stable condition. [id number] DOCUMENTATION: Patient: Lary Velasquez. Date of encounter: 03/25/2021. Date of : 1945. I certify that Lary Velasquez is under my care and that I had a [id number] encounter that meets the physician [id number] requirement on 03/25/2021. This date must match the discharge summary, progress note/clinic visit documentation supporting this information. The encounter with the patient was in whole or in part for the following medical condition, which is primary reason for home healthcare: myeloproliferative disease. My clinical findings support the need for the services because of inability to safely get to an outpatient facility for therapy due to fall risk, lack of muscle coordination, shortness of breath with or without activity (walking greater than 20 feet; talking; completing ADLs), and profound weakness. Further, I certify that my clinical findings support that this patient is homebound (i.e. absences from home require considerable and taxing effort, or for medical reasons, or for jew services, or infrequent, or in short duration when from other reasons) because the patient is unable to safely ambulate distances less than 20 feet, the patient experiences shortness of breath at rest and/or with daily activity, patient requires frequent rest periods due to profound weakness and endurance, patient requires use of assistive device and/or use of wall/furniture to ambulate (high fall risk) and patient requires assistance of another person to leave the home. Certification: Home health services. I certify that Lary Velasquez meets the homebound requirements for the peer source and has a need for intermittent halfway, physical therapy, and/or occupational services in the home for the diagnosis currently outlined in the initial plan of care. These services will continue to be monitored by Dr. Savana Nina. This physician will periodically review and update the plan of care as required. My signature indicates that this supplemental documentation has been incorporated in the patient's medical record. Kris Butcher NP 03/25/2021 [facility] TB: 03/25/2021 07:45:29 MODL: 03/25/2021 13:29:54 /[id number] MTDD
== END 2021-03-25 11:30 | disposition home health service (06) | DRG 948 ==
LOC: VM.MS 09:07
PROVIDERS: ADMIT Nurse Practitioner Family; ATTEND Nurse Practitioner Family
DX: R53.81 Other malaise (principal); C82.90 Follicular lymphoma, unspecified, unspecified site; C94.6 Myelodysplastic disease, not elsewhere classified; D75.81 Myelofibrosis; N39.0 Urinary tract infection, site not specified; G89.3 Neoplasm related pain (acute) (chronic); D75.9 Disease of blood and blood-forming organs, unspecified; I10 Essential (primary) hypertension; E11.9 Type 2 diabetes mellitus without complications; E78.5 Hyperlipidemia, unspecified; Z86.73 Personal history of transient ischemic attack (TIA), and cerebral infarction without residual deficits; Z79.82 Long term (current) use of aspirin; Z79.02 Long term (current) use of antithrombotics/antiplatelets; Z79.899 Other long term (current) drug therapy
CPT/HCPCS: 82947; 97116-GP; A9270-GY

== ENCOUNTER 2021-10-14 11:04 | Inpatient (IN) | payer MEDICARE ==
[2021-10-14] MEDS ORDERED: Ondansetron 4 MG Tab.DIS PO PRN (12:09)
[2021-10-14] MEDS ORDERED: Prochlorperazine 5 MG Tab PO PRN (12:54)
[2021-10-14] MEDS: Dextrose 5%-0.45% NaCl 1,000 ML IV SCH ×2 (13:06→23:22)
[2021-10-14 13:22] LABS: ANION GAP 15.6 mmol/L (5-15); CHLORIDE,CL 102 mmol/L (98-107); SODIUM,NA 138 mmol/L (136-145)
--- NOTE | 2021-10-14 15:17 | PCM.HP.2 ---
H&P History of Present Illness - General Date of Service: 10/14/21 Admit Problem/Dx: Admission Diagnosis/Problem Admission Diagnosis/Problem Community acquired pneumonia Weakness and cough Source of Information: Patient - History of Present Illness Initial Comments - Free Text/Narative: 76 year old female presents to clinic with 1 week history of cough, malaise and weakness. Covid negative (from clinic today). Chest xray reveals LLL infiltrate. Onset of Symptoms: Reports: Gradual Symptom Onset Date: 10/07/21 Symptom Onset Time: 08:20 - Related Data Allergies/Adverse Reactions: Allergies Allergy/AdvReac Type Severity Reaction Status Date / Time No Known Allergies Allergy Verified 03/17/21 11:48 Home Medications: Home Meds Clopidogrel [Plavix] 75 mg PO BEDTIME 12/06/17 [History] Enalapril [Vasotec] 5 mg PO DAILY 12/06/17 [History] Simvastatin [Zocor] 40 mg PO BEDTIME 12/06/17 [History] L.acidoph,Paracasei, B.lactis [Probiotic] 1 cap PO BID 03/17/21 [History] Trospium [Sanctura] 20 mg PO BID 03/17/21 [History] allopurinoL [Zyloprim] 100 mg PO DAILY 03/17/21 [History] Ruxolitinib Phosphate [Jakafi] 10 mg PO BID #0 03/20/21 [Rx] Hydroxyurea [Hydrea] 500 mg PO SUMOWEFR@08 10/14/21 [History] Prochlorperazine Maleate [Compazine] 10 mg PO Q6H PRN 10/14/21 [History] Past Medical History HEENT History: Reports: Cataract, Macular Degeneration, Other (See Below) Other HEENT History: presbyopia. myopia Cardiovascular History: Reports: High Cholesterol, Hypertension, Other (See Below) Other Cardiovascular History: CVD Respiratory History: Reports: None Gastrointestinal History: Reports: Other (See Below) Other Gastrointestinal History: + FIT Neurological History: Reports: CVA, Headaches, Chronic, Other (See Below) Other Neuro History: CVD Psychiatric History: Reports: None Endocrine/Metabolic History: Reports: Diabetes, Type II, Obesity/BMI 30+ Hematologic History: Reports: None Immunologic History: Reports: None Oncologic (Cancer) History: Reports: Lymphoma, Other (See Below) Other Oncologic History: 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 Dermatologic History: Reports: Other (See Below) Other Dermatologic History: right side neck mass - Infectious Disease History Infectious Disease History: Reports: Chicken Pox, Measles, Rubella - Past Surgical History Head Surgeries/Procedures: Reports: None HEENT Surgical History: Reports: Other (See Below) Other HEENT Surgeries/Procedures: INJECTIONS IN LEFT EYE Cardiovascular Surgical History: Reports: None Respiratory Surgical History: Reports: None Female Surgical History: Reports: Section Social & Family History - Family History Family Medical History: No Pertinent Family History - Tobacco Use Tobacco Use Status *Q: Current Every Day Tobacco User Years of Tobacco use: 60 Packs/Tins Daily: 0.5 Used Tobacco, but Quit: No - Caffeine Use Caffeine Use: Reports: Coffee, Soda - Recreational Drug Use Recreational Drug Use: No H&P Review of Systems - Review of Systems: Review Of Systems: See Below General: Reports: Chills, Weakness. Denies: Fever HEENT: Reports: No Symptoms Pulmonary: Reports: Shortness of Breath, Cough Cardiovascular: Denies: Chest Pain Gastrointestinal: Reports: Abdominal Pain, Decreased Appetite Genitourinary: Reports: No Symptoms Musculoskeletal: Reports: Joint Pain Skin: Denies: Rash Psychiatric: Reports: No Symptoms Neurological: Reports: Weakness Exam - Exam Exam: See Below - Vital Signs Vital Signs: Last Vital Signs Temp 35.6 C L 10/14/21 11:41 Pulse 93 10/14/21 11:41 Resp 19 10/14/21 11:41 BP 102/52 L 10/14/21 11:41 Pulse Ox 94 L 10/14/21 11:41 Weight: 81.448 kg - Exam General: Alert, Oriented HEENT: Conjunctiva Clear Neck: Supple Lungs: Rhonchi (left base) Cardiovascular: Regular Rate, Regular Rhythm GI/Abdominal Exam: Normal Bowel Sounds, Hepatomegaly (Female) Exam: Deferred Rectal (Female) Exam: Deferred Extremities: Normal Inspection - Patient Data Lab Results Last 24 hrs: Laboratory Results - last 24 hr 10/14/21 10/14/21 10/14/21 Range/Units 12:35 12:35 12:35 WBC 154.0 H* (4.0-10.0) x10^3/uL RBC 2.86 L (4.00-5.50) x10^6/uL Hgb 8.1 L (12.0-16.0) g/dL Hct 25.6 L (33.0-47.0) % MCV 89.5 (78.0-93.0) fL MCH 28.3 (26.0-32.0) pg MCHC 31.6 L (32.0-36.0) g/dL RDW Coeff of Audrey 22.0 H (10.0-15.0) % Plt Count 50 L (130-400) x10^3/uL Add Manual Diff Yes Neutrophils % (Manual) 35 L (50-80) % Band Neutrophils % 19 H (0-6) % Lymphocytes % (Manual) 9 L (25-50) % Monocytes % (Manual) 5 (2-11) % Eosinophils % (Manual) 2 (0-4) % Basophils % (Manual) 4 H (0-1) % Metamyelocytes % 15 H (0) % Myelocytes % 8 H (0) % Blast Cells % 3 H (0) % Immature Gran # 35.42 H (0.00-0.07) X10^3/Ul Absolute Neutrophils 83.2 H (1.8-7.7) x10^3/uL Lymphocytes # (Manual) 13.9 H (1.0-4.8) x10^3/uL Monocytes # (Manual) 7.7 H (0.0-0.8) x10^3/uL Eosinophils # (Manual) 3.1 H (0.0-0.5) x10^3/uL Basophils # (Manual) 6.2 H (0.0-0.2) x10^3/uL Platelet Estimate Marked dec L Hypochromasia 1+ slight H Anisocytosis 3+ marked H Spherocytes 1+ slight H Ovalocytes 1+ slight H Sodium 138 (136-145) mmol/L Potassium 4.6 (3.5-5.1) mmol/L Chloride 102 (98-107) mmol/L Carbon Dioxide 25 (21-32) mmol/L Anion Gap 15.6 H (5-15) mmol/L BUN 17 (7-18) mg/dL Creatinine 1.1 H (0.55-1.02) mg/dL Est Cr Clr Drug Dosing TNP Estimated GFR (MDRD) 48 Glucose 135 H (70-99) mg/dL Lactic Acid 1.4 (0.4-2.0) mmol/L Calcium 8.4 L (8.5-10.1) mg/dL Corrected Calcium 9.3 (8.5-10.1) mg/dL Total Bilirubin 0.4 (0.2-1.0) mg/dL AST 47 H (15-37) U/L ALT 25 (14-59) U/L Alkaline Phosphatase 126 H (46-116) U/L Total Protein 6.6 (6.4-8.2) g/dL Albumin 2.9 L (3.4-5.0) g/dL Globulin 3.7 Albumin/Globulin Ratio 0.78 Result Diagrams: 10/14/21 12:35 10/14/21 12:35 Sepsis Event Note - Evaluation Sepsis Screening Result: No Definite Risk - Focused Exam Vital Signs: Vital Signs Temp Pulse Resp BP Pulse Ox 10/14/21 11:41 35.6 C L 93 19 102/52 L 94 L - Problem List (1) Pneumonia SNOMED Code(s): 144780265 ICD Code: J18.9 - PNEUMONIA, UNSPECIFIED ORGANISM Status: Acute Current Visit: Yes Qualifiers: Pneumonia type: due to unspecified organism Laterality: left Lung location: lower lobe of lung Qualified Code(s): J18.9 - Pneumonia, unspecified organism (2) Lymphoma SNOMED Code(s): 661691137 ICD Code: C85.90 - NON-HODGKIN LYMPHOMA, UNSPECIFIED, UNSPECIFIED SITE Status: Acute Current Visit: No Qualifiers: Lymphoma type: non-Hodgkin 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 Qualified Code(s): C82.07 - Follicular lymphoma grade I, spleen (3) Primary myelofibrosis SNOMED Code(s): 164490960 ICD Code: D47.1 - CHRONIC MYELOPROLIFERATIVE DISEASE Status: Acute Current Visit: No Problem List Initiated/Reviewed/Updated: Yes Orders Last 24hrs: Active Orders 24 hr Category Date Time Status Patient Status [ADT] Routine ADT 10/14/21 12:09 Active Oxygen Therapy [RC] , Care 10/14/21 12:09 Active Up With Assistance [RC] Care 10/14/21 12:09 Active VTE/DVT Education [RC] PER UNIT ROUTINE Care 10/14/21 12:09 Active Vital Signs [RC] 06,10,14,18,22,02 Care 10/14/21 12:09 Active OT Evaluation and Treatment [CONS] Routine Cons 10/14/21 12:09 Active PT Evaluation and Treatment [CONS] Routine Cons 10/14/21 12:09 Active Regular Diet [DIET] Diet 10/14/21 Lunch Active CULTURE BLOOD [BC] Stat Lab 10/14/21 12:35 Received CULTURE BLOOD [BC] Stat Lab 10/14/21 12:45 Received Clopidogrel [Plavix] Med 10/14/21 20:00 Active 75 mg PO BEDTIME Dextrose 5%-0.45% NaCl [Dextrose 5%-1/2 NS] 1,000 ml Med 10/14/21 12:45 Active IV ASDIRECTED Enalapril [Vasotec] Med 10/15/21 08:00 Active 5 mg PO DAILY Hydroxyurea [Hydrea] Med 10/15/21 08:00 Active 500 mg PO SuMoWeFr@0800 Lactobacillus Rhamnosus GG [Culturelle] Med 10/14/21 20:00 Active 1 cap PO BID Ondansetron [Zofran ODT] Med 10/14/21 12:09 Active 4 mg PO Q4H PRN Prochlorperazine [Compazine] Med 10/14/21 12:54 Active 10 mg PO Q6H PRN Ruxolitinib Phosphate [Jakafi] Med 10/14/21 20:00 Active 0 mg PO BID Simvastatin [Zocor] Med 10/14/21 20:00 Active 40 mg PO BEDTIME Trospium [Sanctura] Med 10/14/21 20:00 Active 20 mg PO BID allopurinoL [Zyloprim] Med 10/15/21 08:00 Active 100 mg PO DAILY Blood Culture x2 Reflex Set [OM.PC] Stat Oth 10/14/21 12:09 Ordered Peripheral IV Insertion Adult [OM.PC] Routine Oth 10/14/21 12:09 Ordered Resuscitation Status Routine Resus Stat 10/14/21 12:09 Ordered Medication Orders Allopurinol (Allopurinol 100 Mg Tab) 100 mg PO DAILY LAINA Clopidogrel Bisulfate (Clopidogrel 75 Mg Tab) 75 mg PO BEDTIME LAINA Enalapril Maleate (Enalapril 5 Mg Tab) 5 mg PO DAILY LAINA Hydroxyurea (Hydroxyurea 500 Mg Cap) 500 mg PO SuMoWeFr@0800 [facility] Dextrose/Sodium Chloride (Dextrose 5%-1/2 Ns) 1,000 mls @ 100 mls/hr IV ASDIRECTED [facility] Last Admin: 10/14/21 13:06 Dose: 100 mls/hr Documented by: SHEY Lactobacillus Rhamnosus (Lactobacillus Rhamnosus Gg (Probiotic) Cap) 1 cap PO BID [facility] Ruxolitinib Phosphate [Jakafi] 10 Mg Tablet (Own Supply) 0 mg PO BID [facility] Ondansetron HCl (Ondansetron 4 Mg Tab.Dis) 4 mg PO Q4H PRN PRN Reason: nausea, able to take PO Prochlorperazine Maleate (Prochlorperazine 5 Mg Tab) 10 mg PO Q6H PRN PRN Reason: Nausea Simvastatin (Simvastatin 40 Mg Tab) 40 mg PO BEDTIME LAINA Trospium (Trospium 20 Mg Tab) 20 mg PO BID [facility] Assessment/Plan Comment:: LLL pneumonia Primary myelofibrosis Follicular lymphoma of head and neck Thrombocytopenia DM - II HTN Patient will be admitted acute. IV fluids ordered. Will start antibiotics. pt requests to be code I
[2021-10-14] MEDS: Cefepime 2 GM Vial IVPUSH SCH ×2 (16:48→23:24)
[2021-10-14] MEDS: Trospium 20 MG Tab PO SCH (19:14)
[2021-10-14] MEDS: Lactobacillus Rhamnosus GG (Probiotic) Cap PO SCH (19:14)
[2021-10-14] MEDS: Clopidogrel 75 MG Tab PO SCH (19:14)
[2021-10-14] MEDS: Simvastatin 40 MG Tab PO SCH (19:14)
[2021-10-14] MEDS: RUXOLITINIB PHOSPHATE 10 MG PO SCH (19:15)
[2021-10-15] MEDS: Lactobacillus Rhamnosus GG (Probiotic) Cap PO SCH ×2 (07:55→20:16)
[2021-10-15] MEDS: Hydroxyurea 500 MG Cap PO SCH (07:56)
[2021-10-15] MEDS: Trospium 20 MG Tab PO SCH ×2 (07:56→20:16)
[2021-10-15] MEDS: Cefepime 2 GM Vial IVPUSH SCH ×2 (07:56→17:03)
[2021-10-15] MEDS: Enalapril 5 MG Tab PO SCH (07:56)
[2021-10-15] MEDS: Allopurinol 100 MG Tab PO SCH (07:57)
[2021-10-15] MEDS: RUXOLITINIB PHOSPHATE 10 MG PO SCH ×2 (07:59→20:16)
[2021-10-15] MEDS: Acetaminophen 325 MG Tab PO PRN (08:36)
[2021-10-15] MEDS: Dextrose 5%-0.45% NaCl 1,000 ML IV SCH ×2 (08:37→23:30)
--- NOTE | 2021-10-15 08:50 | PCM.PN ---
- General Info Date of Service: 10/15/21 Admission Dx/Problem (Free Text): Admission Diagnosis/Problem Admission Diagnosis/Problem Community acquired pneumonia Weakness and cough Subjective Update: Patient states she isn't feeling much better. States she is "so tired." was up multiple times voiding. Continues to cough. Has tenderness over spleen today Functional Status: Reports: Pain Controlled - Review of Systems General: Reports: Weakness HEENT: Reports: No Symptoms Pulmonary: Reports: Cough Cardiovascular: Denies: Chest Pain Gastrointestinal: Reports: Abdominal Pain (LUQ) Genitourinary: Reports: Frequency Neurological: Reports: Weakness - Patient Data Vitals - Most Recent: Last Vital Signs Temp 35.2 C L 10/15/21 06:00 Pulse 84 10/15/21 06:00 Resp 18 10/15/21 06:00 BP 102/57 L 10/15/21 07:56 Pulse Ox 92 L 10/15/21 06:00 Weight - Most Recent: 84.64 kg I&O - Last 24 Hours: Intake & Output 10/14/21 10/15/21 10/15/21 22:59 06:59 14:59 Intake Total 759 1189 360 Balance 759 1189 360 Lab Results Last 24 Hours: Laboratory Results - last 24 hr 10/14/21 10/14/21 10/14/21 Range/Units 12:35 12:35 12:35 WBC 154.0 H* (4.0-10.0) x10^3/uL RBC 2.86 L (4.00-5.50) x10^6/uL Hgb 8.1 L (12.0-16.0) g/dL Hct 25.6 L (33.0-47.0) % MCV 89.5 (78.0-93.0) fL MCH 28.3 (26.0-32.0) pg MCHC 31.6 L (32.0-36.0) g/dL RDW Coeff of Audrey 22.0 H (10.0-15.0) % Plt Count 50 L (130-400) x10^3/uL Add Manual Diff Yes Neutrophils % (Manual) 35 L (50-80) % Band Neutrophils % 19 H (0-6) % Lymphocytes % (Manual) 9 L (25-50) % Monocytes % (Manual) 5 (2-11) % Eosinophils % (Manual) 2 (0-4) % Basophils % (Manual) 4 H (0-1) % Metamyelocytes % 15 H (0) % Myelocytes % 8 H (0) % Blast Cells % 3 H (0) % Immature Gran # 35.42 H (0.00-0.07) X10^3/Ul Absolute Neutrophils 83.2 H (1.8-7.7) x10^3/uL Lymphocytes # (Manual) 13.9 H (1.0-4.8) x10^3/uL Monocytes # (Manual) 7.7 H (0.0-0.8) x10^3/uL Eosinophils # (Manual) 3.1 H (0.0-0.5) x10^3/uL Basophils # (Manual) 6.2 H (0.0-0.2) x10^3/uL Platelet Estimate Marked dec L Hypochromasia 1+ slight H Anisocytosis 3+ marked H Spherocytes 1+ slight H Ovalocytes 1+ slight H Sodium 138 (136-145) mmol/L Potassium 4.6 (3.5-5.1) mmol/L Chloride 102 (98-107) mmol/L Carbon Dioxide 25 (21-32) mmol/L Anion Gap 15.6 H (5-15) mmol/L BUN 17 (7-18) mg/dL Creatinine 1.1 H (0.55-1.02) mg/dL Est Cr Clr Drug Dosing TNP Estimated GFR (MDRD) 48 Glucose 135 H (70-99) mg/dL Lactic Acid 1.4 (0.4-2.0) mmol/L Calcium 8.4 L (8.5-10.1) mg/dL Corrected Calcium 9.3 (8.5-10.1) mg/dL Total Bilirubin 0.4 (0.2-1.0) mg/dL AST 47 H (15-37) U/L ALT 25 (14-59) U/L Alkaline Phosphatase 126 H (46-116) U/L Total Protein 6.6 (6.4-8.2) g/dL Albumin 2.9 L (3.4-5.0) g/dL Globulin 3.7 Albumin/Globulin Ratio 0.78 Procalcitonin (0.1-0.50) ng/mL 10/14/21 Range/Units 12:35 WBC (4.0-10.0) x10^3/uL RBC (4.00-5.50) x10^6/uL Hgb (12.0-16.0) g/dL Hct (33.0-47.0) % MCV (78.0-93.0) fL MCH (26.0-32.0) pg MCHC (32.0-36.0) g/dL RDW Coeff of Audrey (10.0-15.0) % Plt Count (130-400) x10^3/uL Add Manual Diff Neutrophils % (Manual) (50-80) % Band Neutrophils % (0-6) % Lymphocytes % (Manual) (25-50) % Monocytes % (Manual) (2-11) % Eosinophils % (Manual) (0-4) % Basophils % (Manual) (0-1) % Metamyelocytes % (0) % Myelocytes % (0) % Blast Cells % (0) % Immature Gran # (0.00-0.07) X10^3/Ul Absolute Neutrophils (1.8-7.7) x10^3/uL Lymphocytes # (Manual) (1.0-4.8) x10^3/uL Monocytes # (Manual) (0.0-0.8) x10^3/uL Eosinophils # (Manual) (0.0-0.5) x10^3/uL Basophils # (Manual) (0.0-0.2) x10^3/uL Platelet Estimate Hypochromasia Anisocytosis Spherocytes Ovalocytes Sodium (136-145) mmol/L Potassium (3.5-5.1) mmol/L Chloride (98-107) mmol/L Carbon Dioxide (21-32) mmol/L Anion Gap (5-15) mmol/L BUN (7-18) mg/dL Creatinine (0.55-1.02) mg/dL Est Cr Clr Drug Dosing Estimated GFR (MDRD) Glucose (70-99) mg/dL Lactic Acid (0.4-2.0) mmol/L Calcium (8.5-10.1) mg/dL Corrected Calcium (8.5-10.1) mg/dL Total Bilirubin (0.2-1.0) mg/dL AST (15-37) U/L ALT (14-59) U/L Alkaline Phosphatase (46-116) U/L Total Protein (6.4-8.2) g/dL Albumin (3.4-5.0) g/dL Globulin Albumin/Globulin Ratio Procalcitonin 0.36 (0.1-0.50) ng/mL Med Orders - Current: Current Medications Acetaminophen (Acetaminophen 325 Mg Tab) 650 mg PO Q6H PRN PRN Reason: Pain Allopurinol (Allopurinol 100 Mg Tab) 100 mg PO DAILY [facility] TO [facility] Last Admin: 10/15/21 07:57 Dose: 100 mg Documented by: Cefepime HCl (Cefepime 2 Gm Vial) 2 gm IVPUSH Q8H [facility]END[facility] S[facility] TO [facility] Last Admin: 10/15/21 07:56 Dose: 2 gm Documented by: Clopidogrel Bisulfate (Clopidogrel 75 Mg Tab) 75 mg PO BEDTIME [facility] Last Admin: 10/14/21 19:14 Dose: 75 mg Documented by: Enalapril Maleate (Enalapril 5 Mg Tab) 5 mg PO DAILY [facility] Last Admin: 10/15/21 07:56 Dose: 5 mg Documented by: Hydroxyurea (Hydroxyurea 500 Mg Cap) 500 mg PO SuMoWeFr@0800 PEND[facility] S[facility] TO [facility] Last Admin: 10/15/21 07:56 Dose: 500 mg Documented by: Dextrose/Sodium Chloride (Dextrose 5%-1/2 Ns) 1,000 mls @ 100 mls/hr IV ASDIRECTED [facility] Last Admin: 10/14/21 23:22 Dose: 100 mls/hr Documented by: Lactobacillus Rhamnosus (Lactobacillus Rhamnosus Gg (Probiotic) Cap) 1 cap PO BID [facility] Last Admin: 10/15/21 07:55 Dose: 1 cap Documented by: Ruxolitinib Phosphate [Jakafi] 10 Mg Tablet (Own Supply) 0 mg PO BID [facility] Last Admin: 10/15/21 07:59 Dose: 10 mg Documented by: Ondansetron HCl (Ondansetron 4 Mg Tab.Dis) 4 mg PO Q4H PRN PRN Reason: nausea, able to take PO Prochlorperazine Maleate (Prochlorperazine 5 Mg Tab) 10 mg PO Q6H PRN PRN Reason: Nausea Simvastatin (Simvastatin 40 Mg Tab) 40 mg PO BEDTIME [facility] Last Admin: 10/14/21 19:14 Dose: 40 mg Documented by: Trospium (Trospium 20 Mg Tab) 20 mg PO BID [facility] Last Admin: 10/15/21 07:56 Dose: 20 mg Documented by: - Exam General: Alert, Oriented HEENT: Pupils Equal Lungs: Normal Respiratory Effort, Rhonchi (left base) Cardiovascular: Regular Rhythm GI/Abdominal Exam: Soft, Hepatomegaly, Splenomegaly - Patient Data Lab Results Last 24 hrs: Laboratory Results - last 24 hr 10/14/21 10/14/21 10/14/21 Range/Units 12:35 12:35 12:35 WBC 154.0 H* (4.0-10.0) x10^3/uL RBC 2.86 L (4.00-5.50) x10^6/uL Hgb 8.1 L (12.0-16.0) g/dL Hct 25.6 L (33.0-47.0) % MCV 89.5 (78.0-93.0) fL MCH 28.3 (26.0-32.0) pg MCHC 31.6 L (32.0-36.0) g/dL RDW Coeff of Audrey 22.0 H (10.0-15.0) % Plt Count 50 L (130-400) x10^3/uL Add Manual Diff Yes Neutrophils % (Manual) 35 L (50-80) % Band Neutrophils % 19 H (0-6) % Lymphocytes % (Manual) 9 L (25-50) % Monocytes % (Manual) 5 (2-11) % Eosinophils % (Manual) 2 (0-4) % Basophils % (Manual) 4 H (0-1) % Metamyelocytes % 15 H (0) % Myelocytes % 8 H (0) % Blast Cells % 3 H (0) % Immature Gran # 35.42 H (0.00-0.07) X10^3/Ul Absolute Neutrophils 83.2 H (1.8-7.7) x10^3/uL Lymphocytes # (Manual) 13.9 H (1.0-4.8) x10^3/uL Monocytes # (Manual) 7.7 H (0.0-0.8) x10^3/uL Eosinophils # (Manual) 3.1 H (0.0-0.5) x10^3/uL Basophils # (Manual) 6.2 H (0.0-0.2) x10^3/uL Platelet Estimate Marked dec L Hypochromasia 1+ slight H Anisocytosis 3+ marked H Spherocytes 1+ slight H Ovalocytes 1+ slight H Sodium 138 (136-145) mmol/L Potassium 4.6 (3.5-5.1) mmol/L Chloride 102 (98-107) mmol/L Carbon Dioxide 25 (21-32) mmol/L Anion Gap 15.6 H (5-15) mmol/L BUN 17 (7-18) mg/dL Creatinine 1.1 H (0.55-1.02) mg/dL Est Cr Clr Drug Dosing TNP Estimated GFR (MDRD) 48 Glucose 135 H (70-99) mg/dL Lactic Acid 1.4 (0.4-2.0) mmol/L Calcium 8.4 L (8.5-10.1) mg/dL Corrected Calcium 9.3 (8.5-10.1) mg/dL Total Bilirubin 0.4 (0.2-1.0) mg/dL AST 47 H (15-37) U/L ALT 25 (14-59) U/L Alkaline Phosphatase 126 H (46-116) U/L Total Protein 6.6 (6.4-8.2) g/dL Albumin 2.9 L (3.4-5.0) g/dL Globulin 3.7 Albumin/Globulin Ratio 0.78 Procalcitonin (0.1-0.50) ng/mL 10/14/21 Range/Units 12:35 WBC (4.0-10.0) x10^3/uL RBC (4.00-5.50) x10^6/uL Hgb (12.0-16.0) g/dL Hct (33.0-47.0) % MCV (78.0-93.0) fL MCH (26.0-32.0) pg MCHC (32.0-36.0) g/dL RDW Coeff of Audrey (10.0-15.0) % Plt Count (130-400) x10^3/uL Add Manual Diff Neutrophils % (Manual) (50-80) % Band Neutrophils % (0-6) % Lymphocytes % (Manual) (25-50) % Monocytes % (Manual) (2-11) % Eosinophils % (Manual) (0-4) % Basophils % (Manual) (0-1) % Metamyelocytes % (0) % Myelocytes % (0) % Blast Cells % (0) % Immature Gran # (0.00-0.07) X10^3/Ul Absolute Neutrophils (1.8-7.7) x10^3/uL Lymphocytes # (Manual) (1.0-4.8) x10^3/uL Monocytes # (Manual) (0.0-0.8) x10^3/uL Eosinophils # (Manual) (0.0-0.5) x10^3/uL Basophils # (Manual) (0.0-0.2) x10^3/uL Platelet Estimate Hypochromasia Anisocytosis Spherocytes Ovalocytes Sodium (136-145) mmol/L Potassium (3.5-5.1) mmol/L Chloride (98-107) mmol/L Carbon Dioxide (21-32) mmol/L Anion Gap (5-15) mmol/L BUN (7-18) mg/dL Creatinine (0.55-1.02) mg/dL Est Cr Clr Drug Dosing Estimated GFR (MDRD) Glucose (70-99) mg/dL Lactic Acid (0.4-2.0) mmol/L Calcium (8.5-10.1) mg/dL Corrected Calcium (8.5-10.1) mg/dL Total Bilirubin (0.2-1.0) mg/dL AST (15-37) U/L ALT (14-59) U/L Alkaline Phosphatase (46-116) U/L Total Protein (6.4-8.2) g/dL Albumin (3.4-5.0) g/dL Globulin Albumin/Globulin Ratio Procalcitonin 0.36 (0.1-0.50) ng/mL Result Diagrams: 10/14/21 12:35 10/14/21 12:35 Sepsis Event Note - Evaluation Sepsis Screening Result: No Definite Risk - Focused Exam Vital Signs: Vital Signs Temp Pulse Resp BP BP Pulse Ox 10/15/21 07:56 102/57 L 10/15/21 06:00 35.2 C L 84 18 102/57 L 92 L 10/15/21 02:36 35.6 C L 81 16 104/56 L 96 10/14/21 21:50 35.6 C L 90 14 95/42 L 94 L - Problem List & Annotations (1) Pneumonia SNOMED Code(s): 181808976 Code(s): J18.9 - PNEUMONIA, UNSPECIFIED ORGANISM Status: Acute Current Visit: Yes Qualifiers: Pneumonia type: due to unspecified organism Laterality: left Lung location: lower lobe of lung Qualified Code(s): J18.9 - Pneumonia, unspecified organism (2) Lymphoma SNOMED Code(s): 668936421 Code(s): C85.90 - NON-HODGKIN LYMPHOMA, UNSPECIFIED, UNSPECIFIED SITE Status: Acute Current Visit: No Qualifiers: Lymphoma type: non-Hodgkin 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 Qualified Code(s): C82.07 - Follicular lymphoma grade I, spleen (3) Primary myelofibrosis SNOMED Code(s): 679017272 Code(s): D47.1 - CHRONIC MYELOPROLIFERATIVE DISEASE Status: Acute Current Visit: No (4) Immunosuppression SNOMED Code(s): 03231981 Code(s): D84.9 - IMMUNODEFICIENCY, UNSPECIFIED Status: Acute Current Visit: Yes - Problem List Review Problem List Initiated/Reviewed/Updated: Yes - My Orders Last 24 Hours: My Active Orders 10/14/21 Lunch Regular Diet [DIET] 10/14/21 12:09 Patient Status [ADT] Routine Oxygen Therapy [RC] 08,20 Up With Assistance [RC] 08,20 VTE/DVT Education [RC] PER UNIT ROUTINE Vital Signs [RC] 06,10,14,18,22,02 OT Evaluation and Treatment [CONS] Routine PT Evaluation and Treatment [CONS] Routine Ondansetron [Zofran ODT] 4 mg PO Q4H PRN Blood Culture x2 Reflex Set [OM.PC] Stat Peripheral IV Insertion Adult [OM.PC] Routine Resuscitation Status Routine 10/14/21 12:35 CULTURE BLOOD [BC] Stat 10/14/21 12:45 CULTURE BLOOD [BC] Stat Dextrose 5%-0.45% NaCl [Dextrose 5%-1/2 NS] 1,000 ml IV ASDIRECTED 10/14/21 12:54 Prochlorperazine [Compazine] 10 mg PO Q6H PRN 10/14/21 15:45 Dietary Supplements [RC] 1130,1930 10/14/21 16:00 Cefepime [Maxipime] 2 gm IVPUSH Q8H 10/14/21 20:00 Clopidogrel [Plavix] 75 mg PO BEDTIME Lactobacillus Rhamnosus GG [Culturelle] 1 cap PO BID Ruxolitinib Phosphate [Jakafi] 0 mg PO BID Simvastatin [Zocor] 40 mg PO BEDTIME Trospium [Sanctura] 20 mg PO BID 10/15/21 08:00 Enalapril [Vasotec] 5 mg PO DAILY Hydroxyurea [Hydrea] 500 mg PO [id number]@[id number] allopurinoL [Zyloprim] 100 mg PO DAILY 10/15/21 08:44 BASIC METABOLIC PANEL,BMP [CHEM] Routine CBC WITH AUTO DIFF [HEME] DAILY - Assessment Assessment:: LLL pneumonia thrombocytopenia Myelofibrosis Follicular lymphoma Immunosuppressed - secondary to above - Plan Plan:: Labs ordered Decrease IV fluid rate Up in chair to eat Therapy ordered
[2021-10-15 09:26] LABS: ANION GAP 13.9 mmol/L (5-15)
[2021-10-15] MEDS: Clopidogrel 75 MG Tab PO SCH (20:16)
[2021-10-15] MEDS: Simvastatin 40 MG Tab PO SCH (20:16)
[2021-10-16] MEDS: Cefepime 2 GM Vial IVPUSH SCH ×3 (00:55→15:53)
[2021-10-16] MEDS: Acetaminophen 325 MG Tab PO PRN (04:40)
[2021-10-16] MEDS: Enalapril 5 MG Tab PO SCH (07:59)
[2021-10-16] MEDS: Allopurinol 100 MG Tab PO SCH (08:00)
[2021-10-16] MEDS: Lactobacillus Rhamnosus GG (Probiotic) Cap PO SCH ×2 (08:00→20:08)
[2021-10-16] MEDS: Trospium 20 MG Tab PO SCH ×2 (08:00→20:08)
[2021-10-16] MEDS: RUXOLITINIB PHOSPHATE 10 MG PO SCH ×2 (08:05→20:09)
[2021-10-16 08:14] LABS: ANION GAP 13.1 mmol/L (5-15)
[2021-10-16] MEDS: Dextrose 5%-0.45% NaCl 1,000 ML IV SCH (10:45)
[2021-10-16] MEDS: Simvastatin 40 MG Tab PO SCH (20:08)
[2021-10-16] MEDS: Clopidogrel 75 MG Tab PO SCH (20:08)
[2021-10-17] MEDS: Cefepime 2 GM Vial IVPUSH SCH ×4 (00:09→23:26)
[2021-10-17] MEDS: Acetaminophen 325 MG Tab PO PRN ×2 (03:47→18:42)
[2021-10-17] MEDS: Lactobacillus Rhamnosus GG (Probiotic) Cap PO SCH ×2 (08:33→19:41)
[2021-10-17] MEDS: Enalapril 5 MG Tab PO SCH (08:33)
[2021-10-17] MEDS: Allopurinol 100 MG Tab PO SCH (08:33)
[2021-10-17] MEDS: Hydroxyurea 500 MG Cap PO SCH (08:33)
[2021-10-17] MEDS: Trospium 20 MG Tab PO SCH ×2 (08:33→19:40)
[2021-10-17] MEDS: RUXOLITINIB PHOSPHATE 10 MG PO SCH ×2 (08:34→19:41)
--- NOTE | 2021-10-17 14:26 | PCM.PN ---
- General Info Date of Service: 10/16/21 Admission Dx/Problem (Free Text): Admission Diagnosis/Problem Admission Diagnosis/Problem Community acquired pneumonia Weakness and cough Subjective Update: Patient states she s not feeling well this morning. Continues to have increased urinary frequency. Denies dysuria or hematuria. Feels like she has been coughing more this AM as well. Functional Status: Reports: Pain Controlled - Review of Systems General: Reports: Weakness HEENT: Reports: No Symptoms Pulmonary: Reports: Cough Gastrointestinal: Reports: Abdominal Pain Genitourinary: Reports: Frequency - Patient Data Vitals - Most Recent: Last Vital Signs Temp 37.3 C 10/17/21 06:00 Pulse 80 10/17/21 06:00 Resp 16 10/17/21 06:00 BP 110/55 L 10/17/21 08:33 Pulse Ox 96 10/17/21 06:00 Weight - Most Recent: 37.104 kg I&O - Last 24 Hours: Intake & Output 10/16/21 10/17/21 10/17/21 22:59 06:59 14:59 Intake Total 120 200 600 Balance 120 200 600 Kenji Results Last 24 Hours: Microbiology 10/14/21 12:45 Aerobic Blood Culture - Preliminary Blood - Venous - Lab Draw NO GROWTH AFTER 3 DAYS Anaerobic Blood Culture - Preliminary NO GROWTH AFTER 3 DAYS 10/14/21 12:35 Aerobic Blood Culture - Preliminary Blood - Venous NO GROWTH AFTER 3 DAYS Anaerobic Blood Culture - Preliminary NO GROWTH AFTER 3 DAYS Med Orders - Current: Current Medications Acetaminophen (Acetaminophen 325 Mg Tab) 650 mg PO Q6H PRN PRN Reason: Pain Last Admin: 10/17/21 03:47 Dose: 650 mg Documented by: Allopurinol (Allopurinol 100 Mg Tab) 100 mg PO DAILY [facility] Last Admin: 10/17/21 08:33 Dose: 100 mg Documented by: Cefepime HCl (Cefepime 2 Gm Vial) 2 gm IVPUSH Q8H [facility] Last Admin: 10/17/21 08:30 Dose: 2 gm Documented by: Clopidogrel Bisulfate (Clopidogrel 75 Mg Tab) 75 mg PO BEDTIME [facility] Last Admin: 10/16/21 20:08 Dose: 75 mg Documented by: Enalapril Maleate (Enalapril 5 Mg Tab) 5 mg PO DAILY [facility] Last Admin: 10/17/21 08:33 Dose: 5 mg Documented by: Hydroxyurea (Hydroxyurea 500 Mg Cap) 500 mg PO SuMoWeFr@0800 [facility] Last Admin: 10/17/21 08:33 Dose: 500 mg Documented by: Lactobacillus Rhamnosus (Lactobacillus Rhamnosus Gg (Probiotic) Cap) 1 cap PO BID [facility] Last Admin: 10/17/21 08:33 Dose: 1 cap Documented by: Ruxolitinib Phosphate [Jakafi] 10 Mg Tablet (Own Supply) 0 mg PO BID [facility] Last Admin: 10/17/21 08:34 Dose: 10 mg Documented by: Ondansetron HCl (Ondansetron 4 Mg Tab.Dis) 4 mg PO Q4H PRN PRN Reason: nausea, able to take PO Prochlorperazine Maleate (Prochlorperazine 5 Mg Tab) 10 mg PO Q6H PRN PRN Reason: Nausea Simvastatin (Simvastatin 40 Mg Tab) 40 mg PO BEDTIME [facility] Last Admin: 10/16/21 20:08 Dose: 40 mg Documented by: Trospium (Trospium 20 Mg Tab) 20 mg PO BID [facility] Last Admin: 10/17/21 08:33 Dose: 20 mg Documented by: Discontinued Medications Dextrose/Sodium Chloride (Dextrose 5%-1/2 Ns) 1,000 mls @ 75 mls/hr IV ASDIRECTED [facility] Last Admin: 10/16/21 10:45 Dose: 100 mls/hr Documented by: - Exam General: Alert, Oriented HEENT: Pupils Equal Neck: Supple Lungs: Decreased Breath Sounds Cardiovascular: Regular Rate (Female) Exam: Normal External Exam - Patient Data Result Diagrams: 10/16/21 07:28 10/16/21 07:25 Kenji Results Last 24 hrs: Microbiology 10/14/21 12:45 Aerobic Blood Culture - Preliminary Blood - Venous - Lab Draw NO GROWTH AFTER 3 DAYS Anaerobic Blood Culture - Preliminary NO GROWTH AFTER 3 DAYS 10/14/21 12:35 Aerobic Blood Culture - Preliminary Blood - Venous NO GROWTH AFTER 3 DAYS Anaerobic Blood Culture - Preliminary NO GROWTH AFTER 3 DAYS Sepsis Event Note - Evaluation Sepsis Screening Result: No Definite Risk - Focused Exam Vital Signs: Vital Signs Temp Pulse Resp BP BP Pulse Ox 10/17/21 08:33 110/55 L 10/17/21 06:00 37.3 C 80 16 106/57 L 96 - Problem List & Annotations (1) Pneumonia SNOMED Code(s): 574643861 Code(s): J18.9 - PNEUMONIA, UNSPECIFIED ORGANISM Status: Acute Current Visit: Yes Qualifiers: Pneumonia type: due to unspecified organism Laterality: left Lung location: lower lobe of lung Qualified Code(s): J18.9 - Pneumonia, unspecified organism (2) Lymphoma SNOMED Code(s): 285982335 Code(s): C85.90 - NON-HODGKIN LYMPHOMA, UNSPECIFIED, UNSPECIFIED SITE Status: Acute Current Visit: No Qualifiers: Lymphoma type: non-Hodgkin 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 Qualified Code(s): C82.07 - Follicular lymphoma grade I, spleen (3) Primary myelofibrosis SNOMED Code(s): 914006346 Code(s): D47.1 - CHRONIC MYELOPROLIFERATIVE DISEASE Status: Acute Current Visit: No (4) Immunosuppression SNOMED Code(s): 02770787 Code(s): D84.9 - IMMUNODEFICIENCY, UNSPECIFIED Status: Acute Current Visit: Yes - Problem List Review Problem List Initiated/Reviewed/Updated: Yes - My Orders Last 24 Hours: My Active Orders 10/18/21 05:00 CBC WITH AUTO DIFF [HEME] Routine - Assessment Assessment:: LLL pneumonia thrombocytopenia Myelofibrosis 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
--- NOTE | 2021-10-17 14:30 | PCM.PN ---
- General Info Date of Service: 10/17/21 Admission Dx/Problem (Free Text): Admission Diagnosis/Problem Admission Diagnosis/Problem Community acquired pneumonia Weakness and cough Subjective Update: Patient reports feeling much better today. Was able to rest more. Has been coughing less. Has been up in chair. States she hasn't really walked outside of room since Monday. Functional Status: Reports: Pain Controlled - Review of Systems General: Reports: Weakness HEENT: Reports: No Symptoms Pulmonary: Reports: Cough Cardiovascular: Reports: No Symptoms Gastrointestinal: Reports: No Symptoms, Other Genitourinary: Reports: No Symptoms Musculoskeletal: Reports: No Symptoms - Patient Data Vitals - Most Recent: Last Vital Signs Temp 37.3 C 10/17/21 06:00 Pulse 80 10/17/21 06:00 Resp 16 10/17/21 06:00 BP 110/55 L 10/17/21 08:33 Pulse Ox 96 10/17/21 06:00 Weight - Most Recent: 37.104 kg I&O - Last 24 Hours: Intake & Output 10/16/21 10/17/21 10/17/21 22:59 06:59 14:59 Intake Total 120 200 600 Balance 120 200 600 Kenji Results Last 24 Hours: Microbiology 10/14/21 12:45 Aerobic Blood Culture - Preliminary Blood - Venous - Lab Draw NO GROWTH AFTER 3 DAYS Anaerobic Blood Culture - Preliminary NO GROWTH AFTER 3 DAYS 10/14/21 12:35 Aerobic Blood Culture - Preliminary Blood - Venous NO GROWTH AFTER 3 DAYS Anaerobic Blood Culture - Preliminary NO GROWTH AFTER 3 DAYS Med Orders - Current: Current Medications Acetaminophen (Acetaminophen 325 Mg Tab) 650 mg PO Q6H PRN PRN Reason: Pain Last Admin: 10/17/21 03:47 Dose: 650 mg Documented by: Allopurinol (Allopurinol 100 Mg Tab) 100 mg PO DAILY [facility] Last Admin: 10/17/21 08:33 Dose: 100 mg Documented by: Cefepime HCl (Cefepime 2 Gm Vial) 2 gm IVPUSH Q8H [facility] Last Admin: 10/17/21 08:30 Dose: 2 gm Documented by: Clopidogrel Bisulfate (Clopidogrel 75 Mg Tab) 75 mg PO BEDTIME [facility] Last Admin: 10/16/21 20:08 Dose: 75 mg Documented by: Enalapril Maleate (Enalapril 5 Mg Tab) 5 mg PO DAILY [facility] Last Admin: 10/17/21 08:33 Dose: 5 mg Documented by: Hydroxyurea (Hydroxyurea 500 Mg Cap) 500 mg PO SuMoWeFr@0800 [facility] Last Admin: 10/17/21 08:33 Dose: 500 mg Documented by: Lactobacillus Rhamnosus (Lactobacillus Rhamnosus Gg (Probiotic) Cap) 1 cap PO BID [facility] Last Admin: 10/17/21 08:33 Dose: 1 cap Documented by: Ruxolitinib Phosphate [Jakafi] 10 Mg Tablet (Own Supply) 0 mg PO BID [facility] Last Admin: 10/17/21 08:34 Dose: 10 mg Documented by: Ondansetron HCl (Ondansetron 4 Mg Tab.Dis) 4 mg PO Q4H PRN PRN Reason: nausea, able to take PO Prochlorperazine Maleate (Prochlorperazine 5 Mg Tab) 10 mg PO Q6H PRN PRN Reason: Nausea Simvastatin (Simvastatin 40 Mg Tab) 40 mg PO BEDTIME [facility] Last Admin: 10/16/21 20:08 Dose: 40 mg Documented by: Trospium (Trospium 20 Mg Tab) 20 mg PO BID [facility] Last Admin: 10/17/21 08:33 Dose: 20 mg Documented by: Discontinued Medications Dextrose/Sodium Chloride (Dextrose 5%-1/2 Ns) 1,000 mls @ 75 mls/hr IV A SDIRECTED [facility] Last Admin: 10/16/21 10:45 Dose: 100 mls/hr Documented by: - Patient Data Result Diagrams: 10/16/21 07:28 10/16/21 07:25 Kenji Results Last 24 hrs: Microbiology 10/14/21 12:45 Aerobic Blood Culture - Preliminary Blood - Venous - Lab Draw NO GROWTH AFTER 3 DAYS Anaerobic Blood Culture - Preliminary NO GROWTH AFTER 3 DAYS 10/14/21 12:35 Aerobic Blood Culture - Preliminary Blood - Venous NO GROWTH AFTER 3 DAYS Anaerobic Blood Culture - Preliminary NO GROWTH AFTER 3 DAYS Sepsis Event Note - Evaluation Sepsis Screening Result: No Definite Risk - Focused Exam Vital Signs: Vital Signs Temp Pulse Resp BP BP Pulse Ox 10/17/21 08:33 110/55 L 10/17/21 06:00 37.3 C 80 16 106/57 L 96 - Problem List & Annotations (1) Pneumonia SNOMED Code(s): 899527777 Code(s): J18.9 - PNEUMONIA, UNSPECIFIED ORGANISM Status: Acute Current Visit: Yes Qualifiers: Pneumonia type: due to unspecified organism Laterality: left Lung location: lower lobe of lung Qualified Code(s): J18.9 - Pneumonia, unspecified organism (2) Lymphoma SNOMED Code(s): 547242374 Code(s): C85.90 - NON-HODGKIN LYMPHOMA, UNSPECIFIED, UNSPECIFIED SITE Status: Acute Current Visit: No Qualifiers: Lymphoma type: non-Hodgkin 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 Qualified Code(s): C82.07 - Follicular lymphoma grade I, spleen (3) Primary myelofibrosis SNOMED Code(s): 185531834 Code(s): D47.1 - CHRONIC MYELOPROLIFERATIVE DISEASE Status: Acute Current Visit: No (4) Immunosuppression SNOMED Code(s): 23944883 Code(s): D84.9 - IMMUNODEFICIENCY, UNSPECIFIED Status: Acute Current Visit: Yes - Problem List Review Problem List Initiated/Reviewed/Updated: Yes - My Orders Last 24 Hours: My Active Orders 10/18/21 05:00 CBC WITH AUTO DIFF [HEME] Routine - Assessment Assessment:: LLL pneumonia thrombocytopenia Myelofibrosis 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 Will change to oral antibiotics at that time. If Hemoglobin drops further - will need to transfuse 2 units of pRBC
[2021-10-17] MEDS: Simvastatin 40 MG Tab PO SCH (19:40)
[2021-10-17] MEDS: Clopidogrel 75 MG Tab PO SCH (19:40)
[2021-10-18] MEDS: Trospium 20 MG Tab PO SCH ×2 (08:48→20:10)
[2021-10-18] MEDS: Lactobacillus Rhamnosus GG (Probiotic) Cap PO SCH ×2 (08:48→20:10)
[2021-10-18] MEDS: Allopurinol 100 MG Tab PO SCH (08:48)
[2021-10-18] MEDS: Hydroxyurea 500 MG Cap PO SCH (08:48)
[2021-10-18] MEDS: Enalapril 5 MG Tab PO SCH (08:49)
[2021-10-18] MEDS: RUXOLITINIB PHOSPHATE 10 MG PO SCH ×2 (08:50→20:11)
[2021-10-18] MEDS: Cefepime 2 GM Vial IVPUSH SCH (08:50)
--- NOTE | 2021-10-18 12:28 | CT ---
[id number] CT/CT Chest WO IV Exam: CT Chest WO IV Clinical Data: COUGH LYMPHOMA COMPARISON: CORRELATION IS MADE WITH THE CAT SCAN OF MARCH 15, 2021 FINDINGS: Thyroid is slightly lobulated and heterogeneous There are no lung nodules or masses The pulmonary arteries and aorta are prominent There are diffuse atheromatous calcifications There are subcentimeter nonspecific mediastinal lymph nodes. There is no pulmonary parenchymal. There is scarring at the right lung base There is significant splenomegaly partially imaged. The bones are heterogeneous IMPRESSION: SCARRING AT RIGHT LUNG BASE NO ACUTE PATHOLOGY IN THE CHEST OTHERWISE ATHEROSCLEROTIC CALCIFICATIONS DIFFUSE ABNORMAL APPEARANCE OF BONE SPLENOMEGALY Live Buchanan MD 10/18/21 [id number] Thank you for allowing us to participate in the care of your patient.
--- NOTE | 2021-10-18 16:05 | PCM.PN ---
- General Info Date of Service: 10/18/21 Admission Dx/Problem (Free Text): Admission Diagnosis/Problem Admission Diagnosis/Problem Community acquired pneumonia Weakness and cough Subjective Update: Patient states she is feeling better again this morning. Recalls only one coughing spell yesterday. Was up in chair. Still with abdominal discomfort related to spleen. - Review of Systems General: Reports: Weakness HEENT: Reports: No Symptoms Pulmonary: Reports: Cough Cardiovascular: Denies: Chest Pain Gastrointestinal: Reports: Abdominal Pain Genitourinary: Reports: No Symptoms Skin: Reports: No Symptoms Neurological: Reports: Weakness - Patient Data Vitals - Most Recent: Last Vital Signs Temp 35.9 C L 10/18/21 14:00 Pulse 86 10/18/21 14:00 Resp 18 10/18/21 14:00 BP 96/45 L 10/18/21 14:00 Pulse Ox 94 L 10/18/21 14:00 Weight - Most Recent: 81.4 kg I&O - Last 24 Hours: Intake & Output 10/18/21 10/18/21 10/18/21 06:59 14:59 22:59 Intake Total 600 Balance 600 Lab Results Last 24 Hours: Laboratory Results - last 24 hr 10/18/21 Range/Units 06:37 WBC 168.4 H* (4.0-10.0) x10^3/uL RBC 2.79 L (4.00-5.50) x10^6/uL Hgb 8.2 L (12.0-16.0) g/dL Hct 25.3 L (33.0-47.0) % MCV 90.7 (78.0-93.0) fL MCH 29.4 (26.0-32.0) pg MCHC 32.4 (32.0-36.0) g/dL RDW Coeff of Audrey 22.0 H (10.0-15.0) % Plt Count 36 L* (130-400) x10^3/uL Add Manual Diff Yes Neutrophils % (Manual) 52 (50-80) % Band Neutrophils % 25 H (0-6) % Lymphocytes % (Manual) 7 L (25-50) % Monocytes % (Manual) 1 L (2-11) % Eosinophils % (Manual) 1 (0-4) % Metamyelocytes % 8 H (0) % Myelocytes % 4 H (0) % Blast Cells % 2 H (0) % Immature Gran # 20.21 H (0.00-0.07) X10^3/Ul Absolute Neutrophils 129.7 H (1.8-7.7) x10^3/uL Lymphocytes # (Manual) 11.8 H (1.0-4.8) x10^3/uL Monocytes # (Manual) 1.7 H (0.0-0.8) x10^3/uL Eosinophils # (Manual) 1.7 H (0.0-0.5) x10^3/uL Toxic Granulation Few Platelet Estimate Marked dec L Anisocytosis 2+ moderate H Spherocytes 1+ slight H Kenji Results Last 24 Hours: Microbiology 10/14/21 12:45 Aerobic Blood Culture - Preliminary Blood - Venous - Lab Draw NO GROWTH AFTER 4 DAYS Anaerobic Blood Culture - Preliminary NO GROWTH AFTER 4 DAYS 10/14/21 12:35 Aerobic Blood Culture - Preliminary Blood - Venous NO GROWTH AFTER 4 DAYS Anaerobic Blood Culture - Preliminary NO GROWTH AFTER 4 DAYS Med Orders - Current: Current Medications Acetaminophen (Acetaminophen 325 Mg Tab) 650 mg PO Q6H PRN PRN Reason: Pain Last Admin: 10/17/21 18:42 Dose: 650 mg Documented by: Allopurinol (Allopurinol 100 Mg Tab) 100 mg PO DAILY [facility] Last Admin: 10/18/21 08:48 Dose: 100 mg Documented by: Clopidogrel Bisulfate (Clopidogrel 75 Mg Tab) 75 mg PO BEDTIME [facility] Last Admin: 10/17/21 19:40 Dose: 75 mg Documented by: Enalapril Maleate (Enalapril 5 Mg Tab) 5 mg PO DAILY [facility] Last Admin: 10/18/21 08:49 Dose: 5 mg Documented by: Hydroxyurea (Hydroxyurea 500 Mg Cap) 500 mg PO SuMoWeFr@0800 [facility] Last Admin: 10/18/21 08:48 Dose: 500 mg Documented by: Lactobacillus Rhamnosus (Lactobacillus Rhamnosus Gg (Probiotic) Cap) 1 cap PO BID [facility] Last Admin: 10/18/21 08:48 Dose: 1 cap Documented by: Ruxolitinib Phosphate [Jakafi] 10 Mg Tablet (Own Supply) 0 mg PO BID [facility] Last Admin: 10/18/21 08:50 Dose: 10 mg Documented by: Ondansetron HCl (Ondansetron 4 Mg Tab.Dis) 4 mg PO Q4H PRN PRN Reason: nausea, able to take PO Prochlorperazine Maleate (Prochlorperazine 5 Mg Tab) 10 mg PO Q6H PRN PRN Reason: Nausea Simvastatin (Simvastatin 40 Mg Tab) 40 mg PO BEDTIME [facility] Last Admin: 10/17/21 19:40 Dose: 40 mg Documented by: Trospium (Trospium 20 Mg Tab) 20 mg PO BID [facility] Last Admin: 10/18/21 08:48 Dose: 20 mg Documented by: Discontinued Medications Cefepime HCl (Cefepime 2 Gm Vial) 2 gm IVPUSH Q8H [facility] Last Admin: 10/18/21 08:50 Dose: 2 gm Documented by: Dextrose/Sodium Chloride (Dextrose 5%-1/2 Ns) 1,000 mls @ 75 mls/hr IV ASDIRECTED [facility] Last Admin: 10/16/21 10:45 Dose: 100 mls/hr Documented by: - Exam General: Alert HEENT: Pupils Equal Lungs: Normal Respiratory Effort Cardiovascular: Regular Rate Extremities: Normal Inspection Skin: Warm, Dry - Patient Data Lab Results Last 24 hrs: Laboratory Results - last 24 hr 10/18/21 Range/Units 06:37 WBC 168.4 H* (4.0-10.0) x10^3/uL RBC 2.79 L (4.00-5.50) x10^6/uL Hgb 8.2 L (12.0-16.0) g/dL Hct 25.3 L (33.0-47.0) % MCV 90.7 (78.0-93.0) fL MCH 29.4 (26.0-32.0) pg MCHC 32.4 (32.0-36.0) g/dL RDW Coeff of Audrey 22.0 H (10.0-15.0) % Plt Count 36 L* (130-400) x10^3/uL Add Manual Diff Yes Neutrophils % (Manual) 52 (50-80) % Band Neutrophils % 25 H (0-6) % Lymphocytes % (Manual) 7 L (25-50) % Monocytes % (Manual) 1 L (2-11) % Eosinophils % (Manual) 1 (0-4) % Metamyelocytes % 8 H (0) % Myelocytes % 4 H (0) % Blast Cells % 2 H (0) % Immature Gran # 20.21 H (0.00-0.07) X10^3/Ul Absolute Neutrophils 129.7 H (1.8-7.7) x10^3/uL Lymphocytes # (Manual) 11.8 H (1.0-4.8) x10^3/uL Monocytes # (Manual) 1.7 H (0.0-0.8) x10^3/uL Eosinophils # (Manual) 1.7 H (0.0-0.5) x10^3/uL Toxic Granulation Few Platelet Estimate Marked dec L Anisocytosis 2+ moderate H Spherocytes 1+ slight H Result Diagrams: 10/18/21 06:37 10/16/21 07:25 Kenji Results Last 24 hrs: Microbiology 10/14/21 12:45 Aerobic Blood Culture - Preliminary Blood - Venous - Lab Draw NO GROWTH AFTER 4 DAYS Anaerobic Blood Culture - Preliminary NO GROWTH AFTER 4 DAYS 10/14/21 12:35 Aerobic Blood Culture - Preliminary Blood - Venous NO GROWTH AFTER 4 DAYS Anaerobic Blood Culture - Preliminary NO GROWTH AFTER 4 DAYS Sepsis Event Note - Evaluation Sepsis Screening Result: No Definite Risk - Focused Exam Vital Signs: Vital Signs Temp Pulse Resp BP BP Pulse Ox 10/18/21 14:00 35.9 C L 86 18 96/45 L 94 L 10/18/21 10:00 35.4 C L 79 18 97/47 L 94 L 10/18/21 08:49 116/62 10/18/21 07:25 87 16 116/62 97 - Problem List & Annotations (1) Pneumonia SNOMED Code(s): 351741570 Code(s): J18.9 - PNEUMONIA, UNSPECIFIED ORGANISM Status: Acute Current Visit: Yes Qualifiers: Pneumonia type: due to unspecified organism Laterality: left Lung location: lower lobe of lung Qualified Code(s): J18.9 - Pneumonia, unspecified organism (2) Lymphoma SNOMED Code(s): 397625569 Code(s): C85.90 - NON-HODGKIN LYMPHOMA, UNSPECIFIED, UNSPECIFIED SITE Status: Acute Current Visit: No Qualifiers: Lymphoma type: non-Hodgkin 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 Qualified Code(s): C82.07 - Follicular lymphoma grade I, spleen (3) Primary myelofibrosis SNOMED Code(s): 180698219 Code(s): D47.1 - CHRONIC MYELOPROLIFERATIVE DISEASE Status: Acute Current Visit: No (4) Immunosuppression SNOMED Code(s): 49165626 Code(s): D84.9 - IMMUNODEFICIENCY, UNSPECIFIED Status: Acute Current Visit: Yes - Problem List Review Problem List Initiated/Reviewed/Updated: Yes - My Orders Last 24 Hours: My Active Orders 10/19/21 08:18 BASIC METABOLIC PANEL,BMP [CHEM] Routine CBC WITH AUTO DIFF [HEME] Routine - Assessment Assessment:: LLL pneumonia - Final Radiology report suggests CT for further definition thrombocytopenia Worsening Myelofibrosis Follicular lymphoma - Increasing WBC count Immunosuppressed - secondary to above - Plan Plan:: Will obtain CT scan. If this does not suggest infiltrate, will discontinue IV antibiotics. Case reviewed with patient's oncology team. They would not suggest platelet transfusion unless patient is actively bleeding or count drops below 10,000 Will anticipate transfer to swing bed in AM
[2021-10-18] MEDS: Simvastatin 40 MG Tab PO SCH (20:10)
[2021-10-18] MEDS: Clopidogrel 75 MG Tab PO SCH (20:10)
--- NOTE | 2021-10-19 07:12 | PCM.DCSUM1 ---
Discharge Summary - Hospital Course Brief History: 76 year old female admitted with complaints of cough and weakness. Clinically felt to have LLL pneumonia. 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 patient with lymphoma as well as primary myelofibrosis. Diagnosis: Stroke: No - Discharge Data Discharge Date: 10/19/21 Discharge Disposition: DC/Tfer W/I Hosp To Swing 61 Condition: Good - Referral to Home Health Primary Care Physician: Savana Nina DO - Discharge Diagnosis/Problem(s) (1) Pneumonia SNOMED Code(s): 964375427 ICD Code: J18.9 - PNEUMONIA, UNSPECIFIED ORGANISM Status: Acute Current Visit: Yes Qualifiers: Pneumonia type: due to unspecified organism Laterality: bilateral Lung location: lower lobe of lung Qualified Code(s): J18.9 - Pneumonia, unspecified organism (2) Lymphoma SNOMED Code(s): 911025565 ICD Code: C85.90 - NON-HODGKIN LYMPHOMA, UNSPECIFIED, UNSPECIFIED SITE Status: Acute Current Visit: No Qualifiers: Lymphoma type: non-Hodgkin 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 Weakness gradually improved as did cough. patient enrolled in physical and occupational therapy as well. WBC continues to rise. platelets continue to drop. CT scan was obtained. No infiltrates identified. Antibiotics discontinued. Oncology team consulted. No change in medications at this time. - Patient Instructions Diet: Regular Diet as Tolerated - Discharge Plan *PRESCRIPTION DRUG MONITORING PROGRAM REVIEWED*: No Home Medications: Home Meds Clopidogrel [Plavix] 75 mg PO BEDTIME 12/06/17 [History] Enalapril [Vasotec] 5 mg PO DAILY 12/06/17 [History] Simvastatin [Zocor] 40 mg PO BEDTIME 12/06/17 [History] L.acidoph,Paracasei, B.lactis [Probiotic] 1 cap PO BID 03/17/21 [History] Trospium [Sanctura] 20 mg PO BID 03/17/21 [History] allopurinoL [Zyloprim] 100 mg PO DAILY 03/17/21 [History] Ruxolitinib Phosphate [Jakafi] 10 mg PO BID #0 03/20/21 [Rx] Hydroxyurea [Hydrea] 500 mg PO SUMOWEFR@08 10/14/21 [History] Prochlorperazine Maleate [Compazine] 10 mg PO Q6H PRN 10/14/21 [History] - Discharge Summary/Plan Comment DC Time >30 min.: No Total # of Minutes for Discharge Time: 20 Discharge Summary/Plan Comment: Patient will be transferred to swing bed for continued therapy. Meds per reconciliation. - General Info Date of Service: 10/19/21 - Review of Systems General: Reports: Weakness HEENT: Reports: No Symptoms Pulmonary: Reports: Cough Cardiovascular: Reports: No Symptoms. Denies: Chest Pain Gastrointestinal: Reports: Abdominal Pain (chronic LUQ pain) Genitourinary: Reports: No Symptoms - Patient Data Vitals - Most Recent: Last Vital Signs Temp 36.8 C 10/19/21 00:30 Pulse 86 10/19/21 00:30 Resp 16 10/19/21 00:30 BP 112/59 L 10/19/21 00:30 Pulse Ox 97 10/19/21 00:30 Weight - Most Recent: 81.4 kg I&O - Last 24 hours: Intake & Output 10/18/21 10/19/21 10/19/21 22:59 06:59 14:59 Intake Total 360 Balance 360 Lab Results - Last 24 hrs: Laboratory Results - last 24 hr 10/18/21 Range/Units 06:37 WBC 168.4 H* (4.0-10.0) x10^3/uL RBC 2.79 L (4.00-5.50) x10^6/uL Hgb 8.2 L (12.0-16.0) g/dL Hct 25.3 L (33.0-47.0) % MCV 90.7 (78.0-93.0) fL MCH 29.4 (26.0-32.0) pg MCHC 32.4 (32.0-36.0) g/dL RDW Coeff of Audrey 22.0 H (10.0-15.0) % Plt Count 36 L* (130-400) x10^3/uL Add Manual Diff Yes Neutrophils % (Manual) 52 (50-80) % Band Neutrophils % 25 H (0-6) % Lymphocytes % (Manual) 7 L (25-50) % Monocytes % (Manual) 1 L (2-11) % Eosinophils % (Manual) 1 (0-4) % Metamyelocytes % 8 H (0) % Myelocytes % 4 H (0) % Blast Cells % 2 H (0) % Immature Gran # 20.21 H (0.00-0.07) X10^3/Ul Absolute Neutrophils 129.7 H (1.8-7.7) x10^3/uL Lymphocytes # (Manual) 11.8 H (1.0-4.8) x10^3/uL Monocytes # (Manual) 1.7 H (0.0-0.8) x10^3/uL Eosinophils # (Manual) 1.7 H (0.0-0.5) x10^3/uL Toxic Granulation Few Platelet Estimate Marked dec L Anisocytosis 2+ moderate H Spherocytes 1+ slight H COSME Results - Last 24 hrs: Microbiology 10/14/21 12:45 Aerobic Blood Culture - Preliminary Blood - Venous - Lab Draw NO GROWTH AFTER 4 DAYS Anaerobic Blood Culture - Preliminary NO GROWTH AFTER 4 DAYS 10/14/21 12:35 Aerobic Blood Culture - Preliminary Blood - Venous NO GROWTH AFTER 4 DAYS Anaerobic Blood Culture - Preliminary NO GROWTH AFTER 4 DAYS Med Orders - Current: Current Medications Acetaminophen (Acetaminophen 325 Mg Tab) 650 mg PO Q6H PRN PRN Reason: Pain Last Admin: 10/17/21 18:42 Dose: 650 mg Documented by: Allopurinol (Allopurinol 100 Mg Tab) 100 mg PO DAILY [facility] Last Admin: 10/18/21 08:48 Dose: 100 mg Documented by: Clopidogrel Bisulfate (Clopidogrel 75 Mg Tab) 75 mg PO BEDTIME [facility] Last Admin: 10/18/21 20:10 Dose: 75 mg Documented by: Enalapril Maleate (Enalapril 5 Mg Tab) 5 mg PO DAILY [facility] Last Admin: 10/18/21 08:49 Dose: 5 mg Documented by: Hydroxyurea (Hydroxyurea 500 Mg Cap) 500 mg PO SuMoWeFr@0800 [facility] Last Admin: 10/18/21 08:48 Dose: 500 mg Documented by: Lactobacillus Rhamnosus (Lactobacillus Rhamnosus Gg (Probiotic) Cap) 1 cap PO BID [facility] Last Admin: 10/18/21 20:10 Dose: 1 cap Documented by: Ruxolitinib Phosphate [Jakafi] 10 Mg Tablet (Own Supply) 0 mg PO BID [facility] Last Admin: 10/18/21 20:11 Dose: 10 mg Documented by: Ondansetron HCl (Ondansetron 4 Mg Tab.Dis) 4 mg PO Q4H PRN PRN Reason: nausea, able to take PO Prochlorperazine Maleate (Prochlorperazine 5 Mg Tab) 10 mg PO Q6H PRN PRN Reason: Nausea Simvastatin (Simvastatin 40 Mg Tab) 40 mg PO BEDTIME [facility] Last Admin: 10/18/21 20:10 Dose: 40 mg Documented by: Trospium (Trospium 20 Mg Tab) 20 mg PO BID [facility] Last Admin: 10/18/21 20:10 Dose: 20 mg Documented by: Discontinued Medications Cefepime HCl (Cefepime 2 Gm Vial) 2 gm IVPUSH Q8H [facility] Last Admin: 10/18/21 08:50 Dose: 2 gm Documented by: Dextrose/Sodium Chloride (Dextrose 5%-1/2 Ns) 1,000 mls @ 75 mls/hr IV ASDIRECTED [facility] Last Admin: 10/16/21 10:45 Dose: 100 mls/hr Documented by: - Exam General: Reports: Alert HEENT: Reports: Pupils Equal Lungs: Reports: Decreased Breath Sounds Cardiovascular: Reports: Regular Rate GI/Abdominal Exam: Normal Bowel Sounds, Splenomegaly Skin: Reports: Warm, Dry Psy/Mental Status: Reports: Alert
[2021-10-19 07:31] LABS: ANION GAP 11.4 mmol/L (5-15)
[2021-10-19] MEDS: Lactobacillus Rhamnosus GG (Probiotic) Cap PO SCH (07:45)
[2021-10-19] MEDS: Enalapril 5 MG Tab PO SCH (07:49)
[2021-10-19] MEDS: Allopurinol 100 MG Tab PO SCH (07:51)
[2021-10-19] MEDS: Trospium 20 MG Tab PO SCH (07:51)
[2021-10-19] MEDS: RUXOLITINIB PHOSPHATE 10 MG PO SCH (07:52)
== END 2021-10-19 16:24 | disposition swing bed (61) | DRG 194 ==
LOC: VM.MS 11:19
PROVIDERS: ADMIT Family Medicine; ATTEND Family Medicine
PROC: XW0 New Technology, Anatomical Regions, Introduction (ICD-10-PCS; principal; 2021-10-14)
DX: J18.9 Pneumonia, unspecified organism (principal); C82.07 Follicular lymphoma grade I, spleen; D84.821 Immunodeficiency due to drugs; D47.1 Chronic myeloproliferative disease; T45.1X5A Adverse effect of antineoplastic and immunosuppressive drugs, initial encounter; E78.00 Pure hypercholesterolemia, unspecified; E66.9 Obesity, unspecified; D69.6 Thrombocytopenia, unspecified; I10 Essential (primary) hypertension; Z86.73 Personal history of transient ischemic attack (TIA), and cerebral infarction without residual deficits; Z79.899 Other long term (current) drug therapy; Z68.31 Body mass index [BMI] 31.0-31.9, adult
CPT/HCPCS: 36415; 71250; 80048; 80053; 83605; 84145; 85025; 87040; 97110-GP; 97116-GP; 97162-GP; 97165-GO; 97535-GO; A9270-GY; J0692; J7042

== ENCOUNTER 2021-10-19 15:36 | Inpatient (IN) | payer MEDICARE ==
[2021-10-19] MEDS ORDERED: Acetaminophen 325 MG Tab PO PRN (16:23)
[2021-10-19] MEDS ORDERED: Prochlorperazine 5 MG Tab PO PRN (16:23)
[2021-10-19] MEDS ORDERED: Ondansetron 4 MG Tab.DIS PO PRN (16:23)
[2021-10-19] MEDS: RUXOLITINIB PHOSPHATE 10 MG PO SCH (20:25)
[2021-10-19] MEDS: Trospium 20 MG Tab PO SCH (20:25)
[2021-10-19] MEDS: Simvastatin 40 MG Tab PO SCH (20:26)
[2021-10-19] MEDS: Clopidogrel 75 MG Tab PO SCH (20:26)
[2021-10-19] MEDS: Lactobacillus Rhamnosus GG (Probiotic) Cap PO SCH (20:26)
[2021-10-20] MEDS: Lactobacillus Rhamnosus GG (Probiotic) Cap PO SCH ×2 (07:54→20:12)
[2021-10-20] MEDS: Trospium 20 MG Tab PO SCH ×2 (07:54→20:12)
[2021-10-20] MEDS: Allopurinol 100 MG Tab PO SCH (07:54)
[2021-10-20] MEDS: Enalapril 5 MG Tab PO SCH (07:58)
[2021-10-20] MEDS ORDERED: Hydroxyurea 500 MG Cap PO SCH (08:00)
[2021-10-20] MEDS: RUXOLITINIB PHOSPHATE 10 MG PO SCH ×2 (08:00→20:13)
[2021-10-20] MEDS ORDERED: ALPRAZolam 0.25 MG Tab PO PRN (17:17)
[2021-10-20] MEDS: Simvastatin 40 MG Tab PO SCH (20:12)
[2021-10-20] MEDS: Clopidogrel 75 MG Tab PO SCH (20:12)
[2021-10-21] MEDS: Allopurinol 100 MG Tab PO SCH (08:19)
[2021-10-21] MEDS: Lactobacillus Rhamnosus GG (Probiotic) Cap PO SCH (08:19)
[2021-10-21] MEDS: Trospium 20 MG Tab PO SCH (08:20)
[2021-10-21] MEDS: Enalapril 5 MG Tab PO SCH (08:23)
[2021-10-21] MEDS: RUXOLITINIB PHOSPHATE 10 MG PO SCH (08:25)
== END 2021-10-21 16:45 | disposition hospice, home (50) | DRG 948 ==
LOC: VM.MS 16:24
PROVIDERS: ADMIT Family Medicine; ATTEND Family Medicine
DX: R53.81 Other malaise (principal); D84.9 Immunodeficiency, unspecified; D47.1 Chronic myeloproliferative disease; C82.04 Follicular lymphoma grade I, lymph nodes of axilla and upper limb; R16.1 Splenomegaly, not elsewhere classified; D69.6 Thrombocytopenia, unspecified; E78.00 Pure hypercholesterolemia, unspecified; I10 Essential (primary) hypertension; E66.9 Obesity, unspecified; E11.9 Type 2 diabetes mellitus without complications; Z79.899 Other long term (current) drug therapy; Z86.73 Personal history of transient ischemic attack (TIA), and cerebral infarction without residual deficits
CPT/HCPCS: 97110-GP; 97116-GP; 97535-GO; A9270-GY

== ENCOUNTER 2022-02-19 02:05 | Emergency (ER) | payer MEDICARE ==
[2022-02-19 02:44] VITALS: BP 116/51; PULSE 92
[2022-02-19] MEDS: Acetaminophen 325 MG Tab PO ONE (02:46)
[2022-02-19 03:11] LABS: ANION GAP 16.1 mmol/L (5-15)
[2022-02-19] MEDS ORDERED: Take Home: traMADol 50 MG, 4 Tab Pack PO ONE (04:33)
== END 2022-02-19 05:40 | disposition home or self-care (01) ==
LOC: VM.ED 02:05
DX: S42.292A Other displaced fracture of upper end of left humerus, initial encounter for closed fracture (principal); S50.311A Abrasion of right elbow, initial encounter; R51.9 Headache, unspecified; M25.552 Pain in left hip; D68.9 Coagulation defect, unspecified; E78.00 Pure hypercholesterolemia, unspecified; I10 Essential (primary) hypertension; E11.9 Type 2 diabetes mellitus without complications; E66.9 Obesity, unspecified; Z79.899 Other long term (current) drug therapy; Z68.33 Body mass index [BMI] 33.0-33.9, adult; Z86.73 Personal history of transient ischemic attack (TIA), and cerebral infarction without residual deficits; W18.30XA Fall on same level, unspecified, initial encounter; Y92.000 Kitchen of unspecified non-institutional (private) residence as the place of occurrence of the external cause
CPT/HCPCS: 36415; 70450; 71045; 73020-LT; 80053; 85025; 85610; 99284; 99284-25; A9270-GY

== ENCOUNTER 2022-02-21 16:29 | Emergency (ER) | payer MEDICARE ==
[2022-02-21] MEDS: Take Home: Acetaminophen/Codeine 300 MG/30 MG, 5 Tab Pack PO ONE (18:40)
[2022-02-21] MEDS: Take Home: Ondansetron 4 MG Tab.DIS, 5 Tab Pack PO ONE (18:40)
== END 2022-02-21 18:51 | disposition home or self-care (01) ==
LOC: VM.ED 16:29
DX: M25.552 Pain in left hip (principal); R16.1 Splenomegaly, not elsewhere classified; I72.2 Aneurysm of renal artery; E78.00 Pure hypercholesterolemia, unspecified; I10 Essential (primary) hypertension; E11.9 Type 2 diabetes mellitus without complications; E66.9 Obesity, unspecified; Z68.30 Body mass index [BMI] 30.0-30.9, adult; Z79.899 Other long term (current) drug therapy; Z86.73 Personal history of transient ischemic attack (TIA), and cerebral infarction without residual deficits
CPT/HCPCS: 72192; 99284; A9270; Q0162

== ENCOUNTER 2022-08-13 17:46 | Emergency (ER) | payer MEDICARE ==
[2022-08-13] MEDS ORDERED: HYDROmorphone 0.5 MG/0.5 ML Syringe IVPUSH ONE ×2 (18:00→22:46)
[2022-08-13 19:04] LABS: PTT,PARTIAL THROMBOPLSTIN TIME 24.5 SEC (20.5-30.9)
[2022-08-13 19:06] LABS: CHLORIDE,CL 108 mmol/L (98-107); SODIUM,NA 142 mmol/L (136-145)
[2022-08-13 19:11] LABS: ANION GAP 11.4 mmol/L (5-15); ESTIMATED GFR 52 mL/min (>=60)
[2022-08-13 19:22] LABS: CORONAVIRUS COVID-19 NAA NEGATIVE (NEGATIVE)
[2022-08-13 19:23] LABS: RESPIRATORY SYNCYTIAL VIR NAA NEGATIVE (NEGATIVE)
[2022-08-13] MEDS ORDERED: Acetaminophen 500 MG Tab PO ONE (19:59)
[2022-08-13] MEDS ORDERED: Iopamidol 755 Mg/ML 100 ML Bottle IVPUSH ONE (20:07)
[2022-08-13] MEDS ORDERED: Sodium Chloride 0.9% 1,000 ML IV SCH (21:15)
[2022-08-13] MEDS ORDERED: Ondansetron 4 MG/2 ML SDV IVPUSH ONE (22:52)
== END 2022-08-13 23:32 | disposition short-term general hospital (02) ==
LOC: VM.ED 17:46
DX: M54.6 Pain in thoracic spine (principal); D69.6 Thrombocytopenia, unspecified; E78.00 Pure hypercholesterolemia, unspecified; I10 Essential (primary) hypertension; E11.9 Type 2 diabetes mellitus without complications; E66.9 Obesity, unspecified; Z87.891 Personal history of nicotine dependence; Z79.899 Other long term (current) drug therapy; Z98.890 Other specified postprocedural states
CPT/HCPCS: 0241U; 36415; 71045; 71275; 80053; 81001; 83605; 83735; 83880; 84100; 84145; 84484; 85025; 85379; 85610; 85730; 86140; 87040; 96361; 96374; 96375; 96376; 99285; A9270; J1170; J2405; J7030; Q9967

== ENCOUNTER 2022-12-12 06:32 | Emergency (ER) | payer MEDICARE ==
[2022-12-12] MEDS ORDERED: fentaNYL 50 MCG/ML SDV IVPUSH ONE (07:11)
[2022-12-12 07:35] LABS: CHLORIDE,CL 112 mmol/L (98-107); SODIUM,NA 146 mmol/L (136-145)
[2022-12-12 07:36] LABS: ANION GAP 13.1 mmol/L (5-15); ESTIMATED GFR 52 mL/min (>=60)
[2022-12-12] MEDS ORDERED: Iopamidol 755 Mg/ML 100 ML Bottle IVPUSH ONE (08:27)
[2022-12-12] MEDS ORDERED: Acetaminophen/oxyCODONE 325-5 MG Tab PO ONE (09:04)
[2022-12-12] MEDS ORDERED: Furosemide 40 MG/4 ML VIAL IV ONE (10:08)
== END 2022-12-12 13:20 | disposition short-term general hospital (02) ==
LOC: VM.ED 06:32
DX: M25.552 Pain in left hip (principal); D69.6 Thrombocytopenia, unspecified; D75.81 Myelofibrosis; C82.00 Follicular lymphoma grade I, unspecified site; E78.00 Pure hypercholesterolemia, unspecified; I10 Essential (primary) hypertension; E11.9 Type 2 diabetes mellitus without complications; E66.9 Obesity, unspecified; Z68.34 Body mass index [BMI] 34.0-34.9, adult; Z79.82 Long term (current) use of aspirin; Z79.899 Other long term (current) drug therapy; Z79.02 Long term (current) use of antithrombotics/antiplatelets
CPT/HCPCS: 36415; 71045; 71275; 80053; 83880; 84484; 85025; 85379; 86140; 93005; 93010; 96374; 96375; 99284; 99285-25; A9270-GY; J1940; J3010; Q9967

== ENCOUNTER 2022-12-15 12:42 | Inpatient (IN) | payer MEDICARE ==
[2022-12-15] MEDS: Acetaminophen 325 MG Tab PO PRN (18:28)
[2022-12-15] MEDS ORDERED: REMOVE LIDODERM TRDERM SCH (21:00)
[2022-12-15] MEDS ORDERED: Lidocaine 4% 1 each Patch TOP SCH (21:15)
[2022-12-15] MEDS: Simvastatin 40 MG Tab PO SCH (21:38)
[2022-12-15] MEDS: Lidocaine 4% 1 each Patch TOP SCH (21:39)
[2022-12-16] MEDS ORDERED: Lidocaine 4% 1 each Patch TOP SCH (09:00)
[2022-12-16] MEDS: REMOVE LIDODERM TRDERM SCH (09:21)
[2022-12-16] MEDS: Allopurinol 100 MG Tab PO SCH (09:21)
[2022-12-16] MEDS: Furosemide 40 MG Tab PO SCH (09:21)
[2022-12-16] MEDS: RUXOLITINIB PHOSPHATE PO SCH (09:22)
[2022-12-16] MEDS: Simvastatin 40 MG Tab PO SCH (20:48)
[2022-12-16] MEDS: Lidocaine 4% 1 each Patch TOP SCH (20:48)
[2022-12-17] MEDS: Allopurinol 100 MG Tab PO SCH (09:14)
[2022-12-17] MEDS: Furosemide 40 MG Tab PO SCH (09:14)
[2022-12-17] MEDS: RUXOLITINIB PHOSPHATE PO SCH (09:18)
[2022-12-17] MEDS: REMOVE LIDODERM TRDERM SCH (09:18)
[2022-12-17] MEDS: Simvastatin 40 MG Tab PO SCH (21:08)
[2022-12-17] MEDS: Lidocaine 4% 1 each Patch TOP SCH (21:09)
[2022-12-18] MEDS: Acetaminophen 325 MG Tab PO PRN (03:14)
[2022-12-18] MEDS: RUXOLITINIB PHOSPHATE PO SCH (09:32)
[2022-12-18] MEDS: Allopurinol 100 MG Tab PO SCH (09:33)
[2022-12-18] MEDS: Furosemide 40 MG Tab PO SCH (09:33)
[2022-12-18] MEDS: REMOVE LIDODERM TRDERM SCH (09:34)
[2022-12-18] MEDS: Lidocaine 4% 1 each Patch TOP SCH (20:47)
[2022-12-18] MEDS: Simvastatin 40 MG Tab PO SCH (20:47)
[2022-12-19] MEDS: Allopurinol 100 MG Tab PO SCH (09:25)
[2022-12-19] MEDS: Furosemide 40 MG Tab PO SCH (09:25)
[2022-12-19] MEDS: RUXOLITINIB PHOSPHATE PO SCH (09:26)
[2022-12-19] MEDS: REMOVE LIDODERM TRDERM SCH (09:28)
[2022-12-19] MEDS: Acetaminophen 325 MG Tab PO PRN (16:22)
[2022-12-19] MEDS: Simvastatin 40 MG Tab PO SCH (20:16)
[2022-12-19] MEDS: Lidocaine 4% 1 each Patch TOP SCH (20:16)
[2022-12-20] MEDS: RUXOLITINIB PHOSPHATE PO SCH (08:10)
[2022-12-20] MEDS: Allopurinol 100 MG Tab PO SCH (08:11)
[2022-12-20] MEDS: Furosemide 40 MG Tab PO SCH (08:11)
[2022-12-20] MEDS: REMOVE LIDODERM TRDERM SCH (19:28)
[2022-12-20] MEDS: Simvastatin 40 MG Tab PO SCH (20:14)
[2022-12-20] MEDS: Lidocaine 4% 1 each Patch TOP SCH (20:15)
[2022-12-21] MEDS: Allopurinol 100 MG Tab PO SCH (08:37)
[2022-12-21] MEDS: Furosemide 40 MG Tab PO SCH (08:37)
[2022-12-21] MEDS: RUXOLITINIB PHOSPHATE PO SCH (08:37)
[2022-12-21] MEDS: REMOVE LIDODERM TRDERM SCH (08:38)
== END 2022-12-21 13:47 | disposition home health service (06) | DRG 948 ==
LOC: VM.MS 13:20
PROVIDERS: ADMIT Nurse Practitioner Family; ATTEND Nurse Practitioner Family
DX: R53.1 Weakness (principal); C91.10 Chronic lymphocytic leukemia of B-cell type not having achieved remission; D75.81 Myelofibrosis; R16.1 Splenomegaly, not elsewhere classified; D63.8 Anemia in other chronic diseases classified elsewhere; D69.6 Thrombocytopenia, unspecified; H81.10 Benign paroxysmal vertigo, unspecified ear; E78.2 Mixed hyperlipidemia; E11.9 Type 2 diabetes mellitus without complications; I25.10 Atherosclerotic heart disease of native coronary artery without angina pectoris; Z98.49 Cataract extraction status, unspecified eye; Z79.899 Other long term (current) drug therapy
CPT/HCPCS: 97110-GP; 97116-GP; 97161-GP; 97165-GO; 97535-GO; A9270-GY

== ENCOUNTER 2023-01-16 16:05 | Emergency (ER) | payer MEDICARE ==
[2023-01-16] MEDS ORDERED: fentaNYL 50 MCG/ML SDV IVPUSH ONE (16:12)
== END 2023-01-16 19:50 | disposition home or self-care (01) ==
LOC: VM.ED 16:05
DX: M25.552 Pain in left hip (principal); E78.00 Pure hypercholesterolemia, unspecified; I10 Essential (primary) hypertension; E11.9 Type 2 diabetes mellitus without complications; E66.9 Obesity, unspecified; Z68.32 Body mass index [BMI] 32.0-32.9, adult; Z86.73 Personal history of transient ischemic attack (TIA), and cerebral infarction without residual deficits; Z79.899 Other long term (current) drug therapy; Z72.0 Tobacco use; W18.30XA Fall on same level, unspecified, initial encounter
CPT/HCPCS: 72192; 73502; 96374; 99284; J3010

== ENCOUNTER 2023-01-27 22:36 | Emergency (ER) | payer MEDICAID, MEDICARE ==
[2023-01-27] MEDS ORDERED: Sodium Chloride 0.9% 1,000 ML IV ONE (22:45)
[2023-01-27] MEDS ORDERED: HYDROmorphone 1 MG/ML Syringe IVPUSH ONE ×2 (22:45→23:49)
[2023-01-27 23:25] LABS: CHLORIDE,CL 107 mmol/L (98-107); SODIUM,NA 144 mmol/L (136-145)
[2023-01-27 23:30] LABS: ANION GAP 14.9 mmol/L (5-15); ESTIMATED GFR 47 mL/min (>=60)
[2023-01-28] MEDS ORDERED: Iopamidol 612 MG/ML 100 ML Bottle IVPUSH ONE (00:04)
[2023-01-28] MEDS ORDERED: Ondansetron 4 MG/2 ML SDV IVPUSH ONE (00:52)
[2023-01-28] MEDS ORDERED: HYDROmorphone 1 MG/ML Syringe IVPUSH ONE ×2 (00:52→01:55)
[2023-01-28] MEDS ORDERED: Sodium Chloride 0.9% 1,000 ML IV SCH (02:00)
== END 2023-01-28 02:32 | disposition short-term general hospital (02) ==
LOC: VM.ED 22:36
DX: K56.609 Unspecified intestinal obstruction, unspecified as to partial versus complete obstruction (principal); E78.00 Pure hypercholesterolemia, unspecified; I10 Essential (primary) hypertension; E11.9 Type 2 diabetes mellitus without complications; E66.9 Obesity, unspecified; Z68.30 Body mass index [BMI] 30.0-30.9, adult; Z86.73 Personal history of transient ischemic attack (TIA), and cerebral infarction without residual deficits; Z72.0 Tobacco use
CPT/HCPCS: 36415; 74177; 80053; 83690; 85025; 86140; 96361; 96374; 96375; 96376; 99285; J1170; J2405; J7030; Q9967; 99284